=== PATIENT | female | born 1940 | race Hispanic/Latino ===

== ENCOUNTER 2017-03-01 14:29 | Inpatient (IN) | payer MEDICARE, MEDICAID ==
[2017-03-01 14:41] VITALS: BMI 59.5
--- NOTE | 2017-03-01 15:01 | ED PDOC ---
Arrival/HPI - General Chief Complaint: Altered Mental Status Time Seen by Provider: 03/01/17 14:42 Historian: Patient, EMS - History of Present Illness Narrative History of Present Illness (Text): 03/01/17 14:57 77yr old female presents today with lethargy. Per ems patient went to dialysis today and was sent to the emergency room for AMS. pt states she has been feeling tired for the past week. denies trauma or injury. denies headaches or dizziness. no cp or sob. no abdominal pain. denies back pain. denies fever/ chills. no other complaints. Time/Duration: 1 week Symptom Onset: Gradual Past Medical History - Provider Review Nursing Documentation Reviewed: Yes - Travel History Have you recently traveled outside [place] w/in the past 3 mons?: No - Infectious Disease Hx of Infectious Diseases: None - Tetanus Immunization Tetanus Immunization: Unknown - Cardiac Hx Congestive Heart Failure: Yes Hx Hypertension: Yes Hx Peripheral Edema: Yes - Pulmonary Hx Respiratory Disorders: No - Neurological Hx Transient Ischemic Attacks (TIA): Yes - HEENT Hx HEENT Disorder: No - Renal Hx Renal Disorder: Yes Date of Last Dialysis Treatment: 03/07/16 Hx Renal Failure: Yes (8 yrs) - Endocrine/Metabolic Hx Diabetes Mellitus Type 2: Yes (40 yrs) - Hematological/Oncological Hx Blood Disorders: Yes Hx Anemia: Yes Hx Blood Transfusions: Yes Hx Blood Transfusion Reaction: No - Integumentary Hx Dermatological Disorder: No Hx Cellulitis: Yes - Musculoskeletal/Rheumatological Hx Arthritis: Yes Hx Falls: No Hx Fractures: Yes - Gastrointestinal Hx Gastrointestinal Disorders: Yes Hx Gastroesophageal Reflux: Yes Other/Comment: pt had abdominal wall hernia. - Genitourinary/Gynecological Hx Incontinence: Yes Hx Reproductive Disorders: No - Psychiatric Hx Anxiety: Yes Hx Depression: Yes Hx Substance Use: No - Past Surgical History Past Surgical History: Unable to Obtain - Surgical History Hx Cataract Extraction: Yes (01/13) Hx Musculoskeletal Surgery: Yes Hx Orthopedic Surgery: Yes (KNEE) Other/Comment: hx surgery post fall brain hematoma 2012,bedridden since then secondary weakness - Anesthesia Hx Anesthesia: Yes Hx Anesthesia Reactions: No Hx Malignant Hyperthermia: No - Suicidal Assessment Feels Threatened In Home Enviroment: No Family/Social History - Physician Review Nursing Documentation Reviewed: Yes Family/Social History: Unknown Family HX Smoking Status: Never Smoked Hx Alcohol Use: No Hx Substance Use: No Hx Substance Use Treatment: No Allergies/Home Meds Allergies/Adverse Reactions: Allergies morphine Allergy (Severe, Verified 03/01/17 22:50) ANAPHYLAXIS peanut Allergy (Severe, Verified 03/01/17 22:50) ANAPHYLAXIS shellfish derived Allergy (Severe, Verified 03/01/17 22:50) ANAPHYLAXIS MSG Allergy (Intermediate, Uncoded 03/01/17 22:50) SWELLING Home Medications: Home Meds Medication Instructions Recorded Confirmed Acetaminophen 325 mg PO Q6 PRN 01/28/16 03/01/17 Amino Acids/Protein Hydrolys 30 ml PO TID 01/28/16 03/01/17 [Pro-Stat Profile Liquid] Fluticasone Propionate [Flonase 2 puff NS Q12 03/01/17 03/01/17 Allergy Relief] Review of Systems - Review of Systems Constitutional: absent: Fevers Respiratory: absent: SOB, Cough Cardiovascular: absent: Chest Pain, Palpitations Gastrointestinal: absent: Abdominal Pain, Vomiting Musculoskeletal: absent: Arthralgias, Back Pain Skin: absent: Rash Neurological: absent: Headache, Dizziness Physical Exam Vital Signs Reviewed: Yes Vital Signs Temp Pulse Pulse Resp BP Pulse Ox 03/01/17 23:14 18 03/01/17 22:51 98.5 F 74 74 18 109/72 03/01/17 15:11 98.5 F 74 18 109/72 97 03/01/17 14:30 98.3 F 76 20 109/72 98 Temperature: Afebrile Blood Pressure: Normal Pulse: Regular Respiratory Rate: Normal Appearance: Positive for: Well-Appearing, Non-Toxic, Comfortable Pain Distress: None Mental Status: Positive for: Confused, Lethargic Finger Stick Blood Glucose: 165 - Systems Exam Head: Present: Atraumatic Pupils: Present: PERRL Neck: Present: Normal Range of Motion Respiratory/Chest: Present: Clear to Auscultation, Good Air Exchange. No: Respiratory Distress, Accessory Muscle Use, Wheezes Cardiovascular: Present: Regular Rate and Rhythm Abdomen: No: Tenderness Lower Extremity: Present: Edema. No: CALF TENDERNESS Skin: Present: Warm, Dry Psychiatric: Present: Alert Medical Decision Making ED Course and Treatment: 03/01/17 15:14 77yr old diabetic female on dialysis presenting with lethargy. due for dialysis today. vitals stable. pt seen and evaluated by dr. raswant cbc: hbg; 9.2 cmp: k;6.2 cr; 8.2 lactate; 1.1 ammonia; <9 trop: 0.01 ekg sinus rhythm with first-degree AV block at [address] elevations cxr: cardiomegaly head ct: FINDINGS: HEMORRHAGE: No intracranial hemorrhage. BRAIN: No mass effect or edema. 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 There is no acute infarct VENTRICLES: Unremarkable. No hydrocephalus. CALVARIUM: Left posterior frontal craniotomy defect PARANASAL SINUSES: Unremarkable as visualized. No significant inflammatory changes. MASTOID AIR CELLS: Unremarkable as visualized. No inflammatory changes. OTHER FINDINGS: None. IMPRESSION: No acute findings 03/01/17 16:[address] mitchell who saw patient at beside. Pt to go directly to dialysis; pt missed dialysis on monday and monday. case discussed with dr. lemon; accepts observational status admission for AMS, hyperkalemia. impression: AMS, hyperkalemia, renal failure admit observational status to tele. 03/01/17 16:32 Pt now is dialysis; new information obtained from detention; pt with strangulated umbilical hernia that was repaired on February 21. Abdomen was soft and nontender. I discussed this information with Dr. Lemon and suggested [place] the order CAT scan with IV contrast. Although patient is without pain, without white count and without elevated latate. 03/02/17 00:30 pt was admitted to tele; PT on tele floor; ct results in vrad; discussed with dr. abreu and the rn surgical dr. fine. ct abd/pelvis; FINDINGS: Artifacts: Streak artifact degrades image quality.Motion artifact degrades image quality. There is artifact from arch body habitus. Lower thorax: There is a small hiatal hernia. There is scarring at the left base. There is a small right effusion. Right lung bases not imaged. ABDOMEN: Liver: Liver is incompletely imaged. No focal lesions are seen in the visualized portion of the liver. Gallbladder and bile ducts: Gallbladder is distended. There may be small stones. Common duct is unremarkable. Pancreas: Pancreas is severely atrophic and fatty-replaced area Spleen: unremarkable Adrenals: unremarkable Kidneys and ureters: Kidneys are atrophic. 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 There is a left renal cyst. There is no pelvocaliectasis or ureterectasis. Stomach and bowel: Stomach is almost empty. Rotation is normal. There is no obstruction. Ileocecal region is incompletely imaged due to body habitus. Cecum and ascending colon are incompletely imaged due to body habitus. There is moderate stool in the colon. There is a fecal bolus in the rectum. Appendix: See stomach and bowel PELVIS: Bladder: Bladder is partially distended. Reproductive: Uterus is absent. There are no adnexal masses. ABDOMEN and PELVIS: Intraperitoneal space: There is no free intraperitoneal air. There is no free fluid. Bones/joints: Bony structures are osteopenic.There are degenerative changes in the osseus structures. There is compression fracture at L2 with vertebroplasty. Soft tissues: There is rectus diastases. Rectus muscles are atrophic. There is abdominal wall abscess which measures approximately 3.6 x 6.5 x 5.4 cm. There are intra-and extra abdominal components to the abscess. There is inflammation in the fat of the abdominal wall. There is air abdominal wall component. Vasculature: There are multiple phleboliths. There are vascular calcifications. Lymph nodes: There is no pathologic adenopathy. IMPRESSION: Limited by large body habitus; 3.6 x 6.5 x 5.4 cm lower abdominal/abdominal wall abscess; possible gallstones; renal atrophy - Lab Interpretations Lab Results: 03/01/17 15:05 03/01/17 19:45 Lab Results 03/01/17 19:45: Sodium 137, Chloride 102, Potassium 3.4 L, Carbon Dioxide 25, Anion Gap 13, BUN 30 H, Creatinine 3.4 H, Est GFR ( Amer) 16, Est GFR ( Non-Af Amer) 13, Random Glucose 98, Calcium 8.5 03/01/17 19:45: TSH 3rd Generation 2.60 03/01/17 17:55: Phosphorus 3.4, Magnesium 2.1 03/01/17 15:05: PT 10.7, INR 0.99, APTT 31.9 H 03/01/17 15:05: Ammonia < 9 L 03/01/17 15:05: WBC 9.7, RBC 2.98 L, Hgb 9.2 L, Hct 27.7 L, MCV 93.0, MCH 30.9, MCHC 33.2, RDW 13.5, Plt Count 169, MPV 9.6, Neutrophils % (Manual) 88 H, Band Neutrophils % 1, Lymphocytes % (Manual) 6 L, Monocytes % (Manual) 3, Eosinophils % (Manual) 2, Platelet Evaluation Normal, Rouleaux 2+ 03/01/17 15:05: Sodium 129 L, Chloride 96 L, Potassium 6.2 H* D, Carbon Dioxide 21, Anion Gap 18, BUN 84 H, Creatinine 8.2 H*, Est GFR ( Amer) 6, Est GFR (Non-Af Amer) 5, Random Glucose 153 H, Calcium 8.3 L, Total Bilirubin 0.4, AST 16, ALT 12, Alkaline Phosphatase 113, Lactate Dehydrogenase 494, Total Creatine Kinase 27 L, Troponin I < 0.01 D, Total Protein 5.7 L, Albumin 2.9 L, Globulin 2.8, Albumin/Globulin Ratio 1.0 L 03/01/17 15:05: pO2 170 H, VBG pH 7.26 L, VBG pCO2 55.0, VBG HCO3 24.7, VBG Total CO2 26.4, VBG O2 Sat (Calc) 98.3 H, VBG Base Excess -3.2 L, VBG Potassium 6.3 H*, Sodium 129.0 L, Chloride 98.0, Glucose 163 H, Lactate 1.1, FiO2 21.0, Venous Blood Potassium 6.3 H* 03/01/17 14:54: POC Glucose (mg/dL) 165 H - RAD Interpretation Radiology Orders: 03/01/17 14:55 CHEST PORTABLE [RAD] Stat 03/01/17 14:56 HEAD W/O CONTRAST [CT] Stat 03/01/17 17:58 ABD & PELVIS W/O PO OR IV CONT [CT] Routine DUPLEX LOWER EXTRM VEIN BILAT [US] Routine - Medication Orders Current Medication Orders: Acetaminophen (Tylenol 325mg Tab) 650 mg PO Q6H PRN PRN Reason: Pain, Mild (1-3) Albuterol Sulfate (Albuterol 0.083% Inhal Jennifer (2.5 Mg/3 Ml) Ud) 2.5 mg INH Q6H PRN PRN Reason: Wheezing Bisacodyl (Dulcolax) 10 mg RC Q8 PRN PRN Reason: Constipation Docusate Sodium (Colace) 200 mg PO DAILY PRN PRN Reason: Constipation Enoxaparin Sodium (Lovenox) 30 mg SC DAILY [facility]LL PRN Reason: Protocol Last Admin: 03/01/17 23:56 Dose: 30 mg Ergocalciferol (Drisdol 50,000 Intl Units Cap) 1 cap PO QWK [facility] Escitalopram Oxalate (Lexapro) 10 mg PO DAILY [facility] Ferrous Sulfate (Feosol) 324 mg PO Q12 [facility] Last Admin: 03/01/17 23:53 Dose: 324 mg Fluticasone Propionate (Flonase) 1 actuation ROSI DAILY [facility] Ceftriaxone Sodium (Rocephin 1 Gram Ivpb) 1 gm in 100 mls @ 100 mls/hr IVPB DAILY [facility] PRN Reason: Protocol Last Admin: 03/01/17 22:13 Dose: 100 mls/hr Insulin Human Lispro (Humalog High) 0 units SC ACHS [facility] PRN Reason: Protocol Last Admin: 03/01/17 23:55 Dose: Not Given Non-Admin Reason: Blood Sugar Parameter Isosorbide Dinitrate (Isordil) 20 mg PO Q8 [facility] Last Admin: 03/01/17 23:56 Dose: 20 mg Lactulose (Enulose) 20 gm PO DAILY [facility] Levothyroxine Sodium (Synthroid) 50 mcg PO 0630 [facility] Mometasone Furoate (Asmanex Twisthaler 220 Mcg) 1 puff IH HS [facility] Montelukast Sodium (Singulair) 10 mg PO HS [facility] Last Admin: 03/01/17 23:57 Dose: 10 mg Non-Formulary Medication (Saccharomyces Boulardi [Florastor]) 250 mg PO DAILY [facility] Ondansetron HCl (Zofran Inj) 4 mg IVP Q6 PRN PRN Reason: Nausea/Vomiting Pantoprazole Sodium (Protonix Inj) 40 mg IVP DAILY [facility] Sevelamer HCl (Renagel) 800 mg PO WM [facility] Sucralfate (Carafate Tab) 1 gm PO BID [facility] Vitamin B Complex/Vit C/Folic Acid (Nephro-Fernando) 1 tab PO DAILY [facility] Discontinued Medications Iohexol (Omnipaque 350 100 Ml) Confirm Administered Dose 350 mg .ROUTE .STK-MED ONE Stop: 03/01/17 21:20 Pneumococcal Polyvalent Vaccine (Pneumovax 23 Vaccine) 0.5 ml IM .ONCE ONE Stop: 03/01/17 23:13 Disposition/Present on Arrival - Present on Arrival Any Indicators Present on Arrival: No History of DVT/PE: No History of Uncontrolled Diabetes: No Urinary Catheter: No History of Decub. Ulcer: No History Surgical Site Infection Following: None - Disposition Have Diagnosis and Disposition been Completed?: Yes Diagnosis: Altered mental status, Hyperkalemia, Abdominal wall abscess Disposition: HOSPITALIZED Disposition Time: 16:00 Patient Plan: Observation, Telemetry Patient Problems: Current Active Problems Problem Status Onset Altered mental status Acute Hyperkalemia Acute Condition: FAIR
[2017-03-01 15:27] LABS: VENOUS BLOOD GAS BASE EXCESS -3.2 mmol/L (0.0-2.0); VENOUS BLOOD PH 7.26 (7.32-7.43)
[2017-03-01 15:32] LABS: HEMATOCRIT 27.7 % (36.0-48.0); MEAN CORPUSCULAR HEMOGLOBIN 30.9 pg (25.0-35.0); MEAN CORPUSCULAR HGB CONC 33.2 g/dl (31.0-37.0); MEAN PLATELET VOLUME 9.6 fl (7.0-11.0); PLATELET COUNT 169 10^3/uL (120.0-450.0); RED CELL DISTRIBUTION WIDTH 13.5 % (11.5-14.5); WHITE BLOOD COUNT 9.7 10^3/ul (4.5-11.0)
--- NOTE | 2017-03-01 15:38 | RAD ---
HISTORY: lethargy COMPARISON: 02/10/2015 FINDINGS: LUNGS: No consolidation. Pulmonary vascular congestion possible. The somewhat shallow lung volumes and large body habitus accentuate this appearance PLEURA: No significant pleural effusion identified, no pneumothorax apparent. CARDIOVASCULAR: Mild cardiomegaly unchanged OSSEOUS STRUCTURES: No significant abnormalities. VISUALIZED UPPER ABDOMEN: Normal. OTHER FINDINGS: Large body habitus IMPRESSION: Cardiomegaly as before. Possible mild pulmonary vascular congestion - limitation as above. No effusions seen
[2017-03-01 15:39] LABS: ALKALINE PHOSPHATASE 113 U/L (38-133); ALT/SGPT 12 U/L (7-56); AST/SGOT 16 U/L (15-39); BILIRUBIN,TOTAL 0.4 mg/dL (0.2-1.3); BLOOD UREA NITROGEN 84 mg/dL (7-21); CALCIUM 8.3 mg/dL (8.4-10.5); CARBON DIOXIDE 21 mmol/L (21-33); CHLORIDE 96 mmol/L (98-107); GFR AFRICAN-AMERICAN 6; GLUCOSE,RANDOM 153 mg/dL (70-110); SODIUM 129 mmol/L (132-148); TOTAL PROTEIN 5.7 g/dL (5.8-8.3)
[2017-03-01 15:48] LABS: INR 0.99 (0.93-1.08); PARTIAL THROMBOPLASTIN TIME 31.9 Seconds (23.7-30.8)
[2017-03-01 15:49] LABS: ADD MANUAL DIFF? YES
--- NOTE | 2017-03-01 15:51 | CT ---
PROCEDURE: CT HEAD WITHOUT CONTRAST. HISTORY: lethargy COMPARISON: None available. TECHNIQUE: Axial computed tomography images were obtained through the head/brain without intravenous contrast. Radiation dose: Total exam DLP = 725 mGy-cm. This CT exam was performed using one or more of the following dose reduction techniques: Automated exposure control, adjustment of the mA and/or kV according to patient size, and/or use of iterative reconstruction technique. FINDINGS: HEMORRHAGE: No intracranial hemorrhage. BRAIN: No mass effect or edema. 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 There is no acute infarct VENTRICLES: Unremarkable. No hydrocephalus. CALVARIUM: Left posterior frontal craniotomy defect PARANASAL SINUSES: Unremarkable as visualized. No significant inflammatory changes. MASTOID AIR CELLS: Unremarkable as visualized. No inflammatory changes. OTHER FINDINGS: None. IMPRESSION: No acute findings
[2017-03-01 15:55] LABS: TROPONIN I < 0.01 ng/mL
[2017-03-01 16:10] LABS: POTASSIUM 6.2 mmol/L (3.6-5.0)
--- NOTE | 2017-03-01 17:09 | CP.PCM.HP ---
<Lynne Neely - Last Filed: 03/01/17 18:14> History of Present Illness - History of Present Illness History of Present Illness: 77 F with PMHx of ESRD on HD (MWF), COPD, DM, HTN, Hypothyroidism, presented to [facility] ED with complaints of lethargy, fatigue, and AMS. Pt apparently missed her last HD appointment on monday so the last time she was dialysized was 1 week ago , last monday. Pt was seen and examined at bedside while receiving HD therapy. Pt is somnolent but arousable, AAOx2. ROS unavailable due to pt condition at this time. PMHx: ESRD on HD (MWF), COPD, DM, HTN, Hypothyroidism, subdural hematoma PSHx: Hysterectomy, hernia repair 1 week ago, subdural hematoma evacuation Famhx: Noncontributory SHx: Lives in [facility]pc Meds: MAR reviewed Allergies: Morphine, peanut, shellfish Implementation Consultant: Dr. Duenas Present on Admission - Present on Admission Any Indicators Present on Admission: No Review of Systems - Review of Systems Systems not reviewed;Unavailable: Acuity of Condition, Altered Mental Status Past Patient History - Infectious Disease Hx of Infectious Diseases: None - Tetanus Immunizations Tetanus Immunization: Unknown - Past Medical History & Family History Past Medical History?: Yes - Past Social History Smoking Status: Never Smoked - CARDIAC Hx Congestive Heart Failure: Yes Hx Hypertension: Yes Hx Peripheral Edema: Yes - PULMONARY Hx Respiratory Disorders: No - NEUROLOGICAL Hx Transient Ischemic Attacks (TIA): Yes - HEENT Hx HEENT Problems: No - RENAL Hx Chronic Kidney Disease: Yes Date of Last Dialysis Treatment: 03/07/16 Hx Renal Failure: Yes (8 yrs) - ENDOCRINE/METABOLIC Hx Diabetes Mellitus Type 2: Yes (40 yrs) - HEMATOLOGICAL/ONCOLOGICAL Hx Blood Disorders: Yes Hx Anemia: Yes Hx Blood Transfusions: Yes Hx Blood Transfusion Reaction: No - INTEGUMENTARY Hx Dermatological Problems: No Hx Cellulitis: Yes - MUSCULOSKELETAL/RHEUMATOLOGICAL Hx Arthritis: Yes Hx Falls: No Hx Fractures: Yes - GASTROINTESTINAL Hx Gastrointestinal Disorders: Yes Hx Gastroesophageal Reflux: Yes Other/Comment: pt had abdominal wall hernia. - GENITOURINARY/GYNECOLOGICAL Hx Incontinence: Yes Hx Reproductive Disorders: No - PSYCHIATRIC Hx Anxiety: Yes Hx Depression: Yes Hx Substance Use: No - SURGICAL HISTORY Hx Cataract Extraction: Yes (01/13) Hx Musculoskeletal Surgery: Yes Hx Orthopedic Surgery: Yes (KNEE) Other/Comment: hx surgery post fall brain hematoma 2013,bedridden since then secondary weakness - ANESTHESIA Hx Anesthesia: Yes Hx Anesthesia Reactions: No Hx Malignant Hyperthermia: No Meds Allergies/Adverse Reactions: Allergies Allergy/AdvReac Type Severity Reaction Status Date / Time morphine Allergy Severe ANAPHYLAXIS Verified 03/08/16 00:57 peanut Allergy Severe ANAPHYLAXIS Verified 03/08/16 00:57 shellfish derived Allergy Severe ANAPHYLAXIS Verified 03/08/16 00:57 MSG Allergy Intermediate SWELLING Uncoded 03/08/16 00:57 Physical Exam - Constitutional Appears: No Acute Distress - Head Exam Head Exam: ATRAUMATIC, NORMAL INSPECTION, NORMOCEPHALIC - Eye Exam Eye Exam: EOMI, Normal appearance, PERRL Pupil Exam: NORMAL ACCOMODATION, PERRL - ENT Exam ENT Exam: Mucous Membranes Moist, Normal Exam - Neck Exam Neck exam: Positive for: Normal Inspection - Respiratory Exam Respiratory Exam: Rales, NORMAL BREATHING PATTERN - Cardiovascular Exam Cardiovascular Exam: REGULAR RHYTHM - GI/Abdominal Exam GI & Abdominal Exam: Distended, Normal Bowel Sounds, Soft, Tenderness Additional comments: dressing in periumbilical region, dressing intact, CDI - Extremities Exam Extremities exam: Positive for: pedal edema - Neurological Exam Neurological exam: Alert, Altered, CN II-XII Intact - Psychiatric Exam Psychiatric exam: Normal Affect, Normal Mood - Skin Skin Exam: Dry, Intact, Normal Color, Warm Results - Vital Signs Recent Vital Signs: Last Vital Signs Temp 98.5 F 03/01/17 15:11 Pulse 74 03/01/17 15:11 Resp 18 03/01/17 15:11 BP 109/72 03/01/17 15:11 Pulse Ox 97 03/01/17 15:11 - Labs Result Diagrams: 03/01/17 15:05 03/01/17 15:05 Assessment & Plan - Assessment and Plan (Free Text) Assessment: 77 F with PMHx of ESRD on HD (MWF), COPD, DM, HTN, Hypothyroidism, presented to [facility] ED with complaints of lethargy, fatigue, and AMS and electrolyte abnormality 2/2 noncompliant dialysis. AMS - likely 2/2 noncompliance with dialysis - emergent HD currently - fu tsh - Will reassess after dialysis - Avoid narcotics since currently drowsy and altered Electrolyte abnormality - hyponatremic and hyperkalemic - reassess with bmp after dialysis - supplement and replete as needed Abdominal pain - recent hernia repair approx 1 week ago, incision site dressed CDI - CT ABD IV contrast, will redialyse if necessary B/L LE erythema and swelling - FU Dopplers - Rocephin for possible cellulitis COPD - continue home nebs Hypothyroidism - Continue synthroid DM - Hold levemir for now will cover with sliding scale and readjust as needed - fingersticks - fu a1c HTN - Hold home meds for now - continue to monitor GI DVT ppx reviewed Seen reviewed and discussed with attending <Melvin Lemon - Last Filed: 03/01/17 20:10> Results - Vital Signs Recent Vital Signs: Last Vital Signs Temp 98.5 F 03/01/17 15:11 Pulse 74 03/01/17 15:11 Resp 18 03/01/17 15:11 BP 109/72 03/01/17 15:11 Pulse Ox 97 03/01/17 15:11 - Labs Result Diagrams: 03/01/17 15:05 03/01/17 15:05 Labs: Laboratory Results - last 24 hr 03/01/17 17:55 Phosphorus 3.4 Magnesium 2.1 Attending/Attestation - Attestation I have personally seen and examined this patient.: Yes I have fully participated in the care of the patient.: Yes I have reviewed all pertinent clinical information: Yes Notes (Text): 03/01/17 20:03 77 year old female with past medical history of ESRD on HD, diabetes. hypothyroidism, and hypertension who presents with lethargy after missed sessions of dialysis. Was also found to have hyperkalemia with potassium of 6.2. She is currently getting emergent dialysis. CT head was negative and ammonia level was normal. Will follow up on repeat labs. Nephrology is following. She also reports some abdominal discomfort. She states she had a recent hernia repair surgery about one week ago. CT abd/pelvis is ordered. Antibiotics ordered for bilateral LE cellulitis. LE dopplers also ordered. Continue with synthroid for hypothyroidism. TSH level is ordered. Melvin Lemon MD Hospitalist.
[2017-03-01 17:52] LABS: BAND 1 % (0-2); EOSINOPHIL 2 % (0.0-3.0); NEUTROPHIL 88 % (50.0-70.0); PLATELET ESTIMATE NORMAL (NORMAL)
[2017-03-01] MEDS ORDERED: Albuterol 0.083% Inhal Sol (2.5 mg/3 mL) UD INH PRN (18:01)
[2017-03-01 18:25] LABS: MAGNESIUM 2.1 mg/dL (1.7-2.2); PHOSPHOROUS 3.4 mg/dL (2.5-4.5)
--- NOTE | 2017-03-01 19:46 | CARD ---
APPROVED REPORT EKG Measurement Heart [id number] MD [id number] <Conclusion> Sinus rhythm with 1st degree AV block Incomplete left bundle branch block Borderline ECG
[2017-03-01] MEDS ORDERED: Iohexol 350 MG/100 ML VIAL ONE (21:19)
[2017-03-01] MEDS ORDERED: Mometasone 220 mcg/puff-14 puff Inh IH SCH (22:00)
[2017-03-01] MEDS: cefTRIAXone 1 gm 1 GM/100 ML BAG IVPB SCH (22:13)
--- NOTE | 2017-03-01 22:36 | CT ---
EXAM: CT Abdomen and Pelvis Without Intravenous Contrast CLINICAL HISTORY: 77 years old, female; Pain; Abdominal pain; Generalized; Additional info: Abd pain TECHNIQUE: Axial computed tomography images of the abdomen and pelvis without intravenous contrast. This CT exam was performed using one or more of the following dose reduction techniques: automated exposure control, adjustment of the mA and/or kV according to patient size, and/or use of iterative reconstruction technique. Coronal and sagittal reformatted images were created and reviewed. EXAM DATE/TIME: 03/01/2017 5:58 PM COMPARISON: Prior images are not available for review. Correlation is made with a report dated 05/27/13 FINDINGS: Artifacts: Streak artifact degrades image quality.Motion artifact degrades image quality. There is artifact from arch body habitus. Lower thorax: There is a small hiatal hernia. There is scarring at the left base. There is a small right effusion. Right lung bases not imaged. ABDOMEN: Liver: Liver is incompletely imaged. No focal lesions are seen in the visualized portion of the liver. Gallbladder and bile ducts: Gallbladder is distended. There may be small stones. Common duct is unremarkable. Pancreas: Pancreas is severely atrophic and fatty-replaced area Spleen: unremarkable Adrenals: unremarkable Kidneys and ureters: Kidneys are atrophic. 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 There is a left renal cyst. There is no pelvocaliectasis or ureterectasis. Stomach and bowel: Stomach is almost empty. Rotation is normal. There is no obstruction. Ileocecal region is incompletely imaged due to body habitus. Cecum and ascending colon are incompletely imaged due to body habitus. There is moderate stool in the colon. There is a fecal bolus in the rectum. Appendix: See stomach and bowel PELVIS: Bladder: Bladder is partially distended. Reproductive: Uterus is absent. There are no adnexal masses. ABDOMEN and PELVIS: Intraperitoneal space: There is no free intraperitoneal air. There is no free fluid. Bones/joints: Bony structures are osteopenic.There are degenerative changes in the osseus structures. There is compression fracture at L2 with vertebroplasty. Soft tissues: There is rectus diastases. Rectus muscles are atrophic. There is abdominal wall abscess which measures approximately 3.6 x 6.5 x 5.4 cm. There are intra-and extra abdominal components to the abscess. There is inflammation in the fat of the abdominal wall. There is air abdominal wall component. Vasculature: There are multiple phleboliths. There are vascular calcifications. Lymph nodes: There is no pathologic adenopathy. IMPRESSION: Limited by large body habitus; 3.6 x 6.5 x 5.4 cm lower abdominal/abdominal wall abscess; possible gallstones; renal atrophy Additional findings as described above.
[2017-03-01 23:11] LABS: CALCIUM 8.5 mg/dL (8.4-10.5); POTASSIUM 3.4 mmol/L (3.6-5.0)
[2017-03-01] MEDS ORDERED: Pneumococcal 23-Valent Vaccine IM ONE (23:12)
[2017-03-01] MEDS: Insulin Lispro (HUMAlog) HIGH Coverage SC SCH (23:55)
[2017-03-01] MEDS: Enoxaparin 30 mg Syringe SC SCH (23:56)
--- NOTE | 2017-03-02 00:33 | CP.PCM.CON ---
History of Present Illness - History of Present Illness History of Present Illness: General Surgery consult for Dr. Perez Consulted for: concern for abdominal wall abscess, 1 week s/p umbilical hernia repair Patient is a 77y/o morbidly obese female with PMH including DM2, ESRD on HD MWF , hypothyroidism, GERD, CHF and COPD with PSH of hysterectomy and repair of a presumed incarcerated umbilical hernia 1 week ago at [facility] [place]. Patient was brought in from half-way for AMS after missing a session of dialysis. Patient was emergently dialyzed for hyperuremia. Patient complained of abdominal discomfort in the ER and a CT scan of the abdomen and pelvis showed a fluid collection and air in the tissue of the abdominal wall at the level of the umbilicus. The fluid collection appears to have an extra and intraperitoneal component, but there is no free air in the abdomen. Patient currently complains of heart burn with regurgitation of food tonight without blood or bile. Denies any abdominal pain at this time, nausea, diarrhea, constipation, melena, hematochezia, decreased appetite, fevers, chills, drainage or bleeding from the surgical site. Patient states that her surgery was an emergent umbilical hernia repair and that a drain was left in after the operation. It has subsequently been removed. afebrile, VSS no leukocytosis PMH: HTN, DM2, ESRD ON HD, hypothyroidism, GERD, CHF, COPD, subdural hematoma, TIA PSH: hysterectomy, subdural hematoma evacuation, umbilical hernia repair ALL: morphine, peanut, shellfish, MSG Social: lives at half-way Review of Systems - Review of Systems All systems: reviewed and no additional remarkable complaints except (as per HPI ) - Constitutional Constitutional: Fatigue, Malaise. absent: Chills, Fever - Breasts Breasts: absent: Pain, Skin Changes - Cardiovascular Cardiovascular: Chest Pain (central burning sensation with eating), Edema. absent: Chest Pain at Rest, Dyspnea - Respiratory Respiratory: absent: Cough, Dyspnea, Chest Congestion - Gastrointestinal Gastrointestinal: As Per HPI, Vomiting. absent: Abdominal Pain, Change in Stool Character, Constipation, Diarrhea, Hematemesis, Hematochezia, Melena, Nausea Additional comments: Denies any abdominal wall drainage or bleeding - Musculoskeletal Musculoskeletal: absent: Numbness, Tingling - Integumentary Integumentary: Wounds (healing surgical site at umbilicus) - Neurological Neurological: absent: Numbness, Tingling Additional comments: visual hallucinations - Psychiatric Psychiatric: Visual Hallucinations. absent: Tactile Hallucinations Past Patient History - Infectious Disease Hx of Infectious Diseases: None - Tetanus Immunizations Tetanus Immunization: Unknown - Past Medical History & Family History Past Medical History?: Yes - Past Social History Smoking Status: Never Smoked - CARDIAC Hx Congestive Heart Failure: Yes Hx Hypertension: Yes Hx Peripheral Edema: Yes - PULMONARY Hx Respiratory Disorders: No - NEUROLOGICAL Hx Transient Ischemic Attacks (TIA): Yes - HEENT Hx HEENT Problems: No - RENAL Hx Chronic Kidney Disease: Yes Date of Last Dialysis Treatment: 03/07/16 Hx Renal Failure: Yes (8 yrs) - ENDOCRINE/METABOLIC Hx Diabetes Mellitus Type 2: Yes (40 yrs) - HEMATOLOGICAL/ONCOLOGICAL Hx Blood Disorders: Yes Hx Anemia: Yes Hx Blood Transfusions: Yes Hx Blood Transfusion Reaction: No - INTEGUMENTARY Hx Dermatological Problems: No Hx Cellulitis: Yes - MUSCULOSKELETAL/RHEUMATOLOGICAL Hx Arthritis: Yes Hx Falls: No Hx Fractures: Yes - GASTROINTESTINAL Hx Gastrointestinal Disorders: Yes Hx Gastroesophageal Reflux: Yes Other/Comment: pt had abdominal wall hernia. - GENITOURINARY/GYNECOLOGICAL Hx Incontinence: Yes Hx Reproductive Disorders: No - PSYCHIATRIC Hx Anxiety: Yes Hx Depression: Yes Hx Substance Use: No - SURGICAL HISTORY Hx Cataract Extraction: Yes (01/13) Hx Musculoskeletal Surgery: Yes Hx Orthopedic Surgery: Yes (KNEE) Other/Comment: hx surgery post fall brain hematoma 2012,bedridden since then secondary weakness - ANESTHESIA Hx Anesthesia: Yes Hx Anesthesia Reactions: No Hx Malignant Hyperthermia: No Meds Allergies/Adverse Reactions: Allergies Allergy/AdvReac Type Severity Reaction Status Date / Time morphine Allergy Severe ANAPHYLAXIS Verified 03/01/17 22:50 peanut Allergy Severe ANAPHYLAXIS Verified 03/01/17 22:50 shellfish derived Allergy Severe ANAPHYLAXIS Verified 03/01/17 22:50 MSG Allergy Intermediate SWELLING Uncoded 03/01/17 22:50 - Medications Medications: Current Medications Acetaminophen (Tylenol 325mg Tab) 650 mg PO Q6H PRN PRN Reason: Pain, Mild (1-3) Albuterol Sulfate (Albuterol 0.083% Inhal Jennifer (2.5 Mg/3 Ml) Ud) 2.5 mg INH Q6H PRN PRN Reason: Wheezing Bisacodyl (Dulcolax) 10 mg RC Q8 PRN PRN Reason: Constipation Docusate Sodium (Colace) 200 mg PO DAILY PRN PRN Reason: Constipation Enoxaparin Sodium (Lovenox) 30 mg SC DAILY [facility] PRN Reason: Protocol Last Admin: 03/01/17 23:56 Dose: 30 mg Ergocalciferol (Drisdol 50,000 Intl Units Cap) 1 cap PO QWK [facility] Escitalopram Oxalate (Lexapro) 10 mg PO DAILY [facility] Ferrous Sulfate (Feosol) 324 mg PO Q12 [facility] Last Admin: 03/01/17 23:53 Dose: 324 mg Fluticasone Propionate (Flonase) 1 actuation ROSI DAILY [facility] Ceftriaxone Sodium (Rocephin 1 Gram Ivpb) 1 gm in 100 mls @ 100 mls/hr IVPB DAILY [facility] PRN Reason: Protocol Last Admin: 03/01/17 22:13 Dose: 100 mls/hr Insulin Human Lispro (Humalog High) 0 units SC ACHS [facility] PRN Reason: Protocol Last Admin: 03/01/17 23:55 Dose: Not Given Isosorbide Dinitrate (Isordil) 20 mg PO Q8 [facility] Last Admin: 03/01/17 23:56 Dose: 20 mg Lactulose (Enulose) 20 gm PO DAILY [facility] Levothyroxine Sodium (Synthroid) 50 mcg PO 0630 [facility] Mometasone Furoate (Asmanex Twisthaler 220 Mcg) 1 puff IH HS [facility] Montelukast Sodium (Singulair) 10 mg PO HS [facility] Last Admin: 03/01/17 23:57 Dose: 10 mg Non-Formulary Medication (Saccharomyces Boulardi [Florastor]) 250 mg PO DAILY [facility] Ondansetron HCl (Zofran Inj) 4 mg IVP Q6 PRN PRN Reason: Nausea/Vomiting Pantoprazole Sodium (Protonix Inj) 40 mg IVP DAILY [facility] Sevelamer HCl (Renagel) 800 mg PO WM [facility] Sucralfate (Carafate Tab) 1 gm PO BID [facility] Vitamin B Complex/Vit C/Folic Acid (Nephro-Fernando) 1 tab PO DAILY [facility] Physical Exam - Constitutional Appears: Non-toxic, No Acute Distress, Chronically Ill - Eye Exam Eye Exam: EOMI, Normal appearance. absent: Conjunctival injection, Scleral icterus - ENT Exam ENT Exam: Mucous Membranes Moist, Normal Oropharynx - Respiratory Exam Respiratory Exam: NORMAL BREATHING PATTERN. absent: Accessory Muscle Use, Respiratory Distress - Cardiovascular Exam Cardiovascular Exam: RRR - GI/Abdominal Exam GI & Abdominal Exam: Soft. absent: Distended, Rebound, Tenderness Additional comments: morbidly obese abdomen with thick pannus and overlying skin edema, healing surgical incision in the umbilicus. Area of firmness under the surgical site without palpable fluctuance or tenderness. No expressible drainage or bleeding or surrounding erythema. - Extremities Exam Extremities exam: Positive for: pedal edema (2+ pitting edema in the dependent portion of the calves), pedal pulses present. Negative for: calf tenderness, tenderness - Neurological Exam Neurological exam: Alert Additional comments: Oriented to person, time, and purpose, but not place - Psychiatric Exam Psychiatric exam: Normal Affect, Normal Mood - Skin Skin Exam: Normal Color, Warm Additional comments: Areas of wet skin under the breasts and abdominal pannus, mild excoriation of the skin on recent umbilical surgery site Results - Vital Signs Recent Vital Signs: Last Vital Signs Temp 98.5 F 03/01/17 22:51 Pulse 74 03/01/17 22:51 Resp 18 03/01/17 23:14 BP 109/72 03/01/17 22:51 Pulse Ox 97 03/01/17 15:11 - Labs Result Diagrams: 03/01/17 15:05 03/01/17 19:45 - Imaging and Cardiology CT scan - abdomen Status: Image reviewed by me, Report reviewed by me CT scan - pelvis Status: Image reviewed by me, Report reviewed by me Assessment & Plan - Assessment and Plan (Free Text) Assessment: 77F with extensive past medical history including ESRD on HD, DM and CHF and PSH of hysterectomy who is 1 week S/P umbilical hernia repair at [facility] [place] with fluid collection/subcutaneous air at recent surgical site Patient is afebrile, normocardic Abdominal exam is benign, no current drainage or sign of abscess, but is limited by body habitus CT: rectus diastases, abdominal wall collection 3.6 x 6.5 x 5.4 cm with intra and extra abdominal components, inflammation of abdominal wall with subcutaneous air at the surgery site no leukocytosis, anemic Plan: -no indication for emergent surgical intervention -though limited by body habitus, exam is not suggestive of an abscess: no tenderness to palpation, fluctuance, or expressible drainage. Possible seroma/ normal post-op changes -trend CBC, monitor for fever -Serial exams -Skin care at surgical site -Continue management per the primary team Thank you for this consult. Will discuss with Dr. Perez who will evaluate the patient in the AM and give further recs Claudia Amado, PGY1
[2017-03-02 03:29] VITALS: RESP 20
--- NOTE | 2017-03-02 05:47 | CP.PCM.PN ---
Subjective - Date & Time of Evaluation Date of Evaluation: 03/02/17 Time of Evaluation: 05:47 - Subjective Subjective: # 24 angiocath was inserted in right upper arm. Dx:Poor venous access. Objective - Vital Signs/Intake and Output Vital Signs (last 24 hours): Temp Pulse Resp BP Pulse Ox 98.7 F 91 H 20 110/76 96 03/02/17 00:01 03/02/17 04:45 03/02/17 00:01 03/02/17 00:01 03/02/17 00:01 - Medications Medications: Current Medications Acetaminophen (Tylenol 325mg Tab) 650 mg PO Q6H PRN PRN Reason: Pain, Mild (1-3) Albuterol Sulfate (Albuterol 0.083% Inhal Jennifer (2.5 Mg/3 Ml) Ud) 2.5 mg INH Q6H PRN PRN Reason: Wheezing Bisacodyl (Dulcolax) 10 mg RC Q8 PRN PRN Reason: Constipation Docusate Sodium (Colace) 200 mg PO DAILY PRN PRN Reason: Constipation Enoxaparin Sodium (Lovenox) 30 mg SC DAILY [facility] PRN Reason: Protocol Last Admin: 03/01/17 23:56 Dose: 30 mg Ergocalciferol (Drisdol 50,000 Intl Units Cap) 1 cap PO QWK [facility] Escitalopram Oxalate (Lexapro) 10 mg PO DAILY [facility] Ferrous Sulfate (Feosol) 324 mg PO Q12 [facility] Last Admin: 03/01/17 23:53 Dose: 324 mg Fluticasone Propionate (Flonase) 1 actuation ROSI DAILY [facility] Ceftriaxone Sodium (Rocephin 1 Gram Ivpb) 1 gm in 100 mls @ 100 mls/hr IVPB DAILY [facility] PRN Reason: Protocol Last Admin: 03/01/17 22:13 Dose: 100 mls/hr Insulin Human Lispro (Humalog High) 0 units SC ACHS [facility] PRN Reason: Protocol Last Admin: 03/01/17 23:55 Dose: Not Given Isosorbide Dinitrate (Isordil) 20 mg PO Q8 [facility] Last Admin: 03/01/17 23:56 Dose: 20 mg Lactulose (Enulose) 20 gm PO DAILY [facility] Levothyroxine Sodium (Synthroid) 50 mcg PO 0630 [facility] Mometasone Furoate (Asmanex Twisthaler 220 Mcg) 1 puff IH HS [facility] Montelukast Sodium (Singulair) 10 mg PO HS [facility] Last Admin: 03/01/17 23:57 Dose: 10 mg Non-Formulary Medication (Saccharomyces Boulardi [Florastor]) 250 mg PO DAILY [facility] Ondansetron HCl (Zofran Inj) 4 mg IVP Q6 PRN PRN Reason: Nausea/Vomiting Pantoprazole Sodium (Protonix Inj) 40 mg IVP DAILY [facility] Sevelamer HCl (Renagel) 800 mg PO WM [facility] Sucralfate (Carafate Tab) 1 gm PO BID [facility] Vitamin B Complex/Vit C/Folic Acid (Nephro-Fernando) 1 tab PO DAILY [facility] - Labs Labs: PT 10.7 Seconds (9.9-11.8) 03/01/17 15:05 INR 0.99 (0.93-1.08) 03/01/17 15:05 APTT 31.9 Seconds (23.7-30.8) H 03/01/17 15:05
[2017-03-02] MEDS ORDERED: Levothyroxine 50 MCG TAB PO SCH (06:30)
[2017-03-02 06:43] VITALS: O2SAT 95
[2017-03-02 07:57] LABS: ADD MANUAL DIFF? NO
[2017-03-02 08:03] LABS: BASO # 0.02 K/mm3 (0.0-2.0); BASO % 0.3 % (0.0-3.0); EOS # 0.2 (0.0-0.7); EOS % 2.7 % (1.5-5.0); GRAN # 5.43 (1.4-6.5); GRAN % 78.1 % (50.0-68.0); HEMATOCRIT 27.4 % (36.0-48.0); LYMPH # 0.8 (1.2-3.4); LYMPH % 10.8 % (22.0-35.0); MEAN CELL VOLUME 94.2 fL (80.0-105.0); MEAN CORPUSCULAR HEMOGLOBIN 30.6 pg (25.0-35.0); MEAN CORPUSCULAR HGB CONC 32.5 g/dl (31.0-37.0); MEAN PLATELET VOLUME 8.6 fl (7.0-11.0); MONO # 0.6 (0.1-0.6); MONO % 8.1 % (1.0-6.0); PLATELET COUNT 136 10^3/uL (120.0-450.0); RED CELL DISTRIBUTION WIDTH 13.4 % (11.5-14.5)
[2017-03-02 08:14] LABS: BILIRUBIN,TOTAL 0.4 mg/dL (0.2-1.3); CALCIUM 8.4 mg/dL (8.4-10.5); POTASSIUM 4.3 mmol/L (3.6-5.0); TOTAL PROTEIN 6.3 g/dL (5.8-8.3)
[2017-03-02] MEDS: Insulin Lispro (HUMAlog) HIGH Coverage SC SCH ×3 (08:27→16:31)
[2017-03-02] MEDS ORDERED: Fluticasone Nasal 50 mcg/Spray NAS SCH (10:00)
[2017-03-02] MEDS ORDERED: Multivitamin Vitamin B Complex (Nephro-Vite) Tab PO SCH (10:00)
[2017-03-02] MEDS ORDERED: [UNRECOGNIZED DRUG - OTHER] PO SCH (10:00)
[2017-03-02] MEDS: cefTRIAXone 1 gm 1 GM/100 ML BAG IVPB SCH (10:26)
[2017-03-02] MEDS: Enoxaparin 30 mg Syringe SC SCH (10:26)
[2017-03-02] MEDS: Prostat 15 g packet PO SCH ×3 (12:09→18:11)
[2017-03-02 12:16] VITALS: BP 118/53; PULSE 78; TEMP 98.4
--- NOTE | 2017-03-02 13:02 | CP.PCM.PN ---
Subjective - Date & Time of Evaluation Date of Evaluation: 03/02/17 Time of Evaluation: 12:00 - Subjective Subjective: Awake alert comfortable c/o pain around umbilicus Objective - Vital Signs/Intake and Output Vital Signs (last 24 hours): Temp Pulse Resp BP Pulse Ox 98.4 F 78 20 118/53 L 95 03/02/17 12:00 03/02/17 12:00 03/02/17 12:00 03/02/17 12:00 03/02/17 06:00 Intake and Output: 03/02/17 03/02/17 06:59 18:59 Intake Total 0 Output Total 0 Balance 0 - Medications Medications: Current Medications Acetaminophen (Tylenol 325mg Tab) 650 mg PO Q6H PRN PRN Reason: Pain, Mild (1-3) Albuterol Sulfate (Albuterol 0.083% Inhal Jennifer (2.5 Mg/3 Ml) Ud) 2.5 mg INH Q6H PRN PRN Reason: Wheezing Bisacodyl (Dulcolax) 10 mg RC Q8 PRN PRN Reason: Constipation Docusate Sodium (Colace) 200 mg PO DAILY PRN PRN Reason: Constipation Enoxaparin Sodium (Lovenox) 30 mg SC DAILY [facility]S [facility] PRN Reason: Protocol Last Admin: 03/02/17 10:26 Dose: 30 mg Ergocalciferol (Drisdol 50,000 Intl Units Cap) 1 cap PO QWK [facility] B[facility]S [facility] Escitalopram Oxalate (Lexapro) 10 mg PO DAILY [facility] 234 BEDS AT [facility] Last Admin: 03/02/17 10:25 Dose: 10 mg Ferrous Sulfate (Feosol) 324 mg PO Q12 [facility] 234 B[facility]S AT [facility] Last Admin: 03/02/17 10:25 Dose: 324 mg Fluticasone Propionate (Flonase) 1 actuation ROSI DAILY [facility] 234 BEDS AT [facility] Ceftriaxone Sodium (Rocephin 1 Gram Ivpb) 1 gm in 100 mls @ 100 mls/hr IVPB DAILY [facility] 234 B[facility]S AT [facility] PRN Reason: Protocol Last Admin: 03/02/17 10:26 Dose: 100 mls/hr Insulin Human Lispro (Humalog High) 0 units SC ACHS [facility] 234 BEDS AT [facility] PRN Reason: Protocol Last Admin: 03/02/17 12:02 Dose: 4 units Isosorbide Dinitrate (Isordil) 20 mg PO Q8 [facility] 234 B[facility]S AT [facility] Last Admin: 03/02/17 06:23 Dose: Not Given Lactulose (Enulose) 20 gm PO DAILY [facility] 234 BEDS AT [facility] Last Admin: 03/02/17 10:26 Dose: 20 gm Levothyroxine Sodium (Synthroid) 50 mcg PO 0630 [facility] 234 BEDS AT [facility] Last Admin: 03/02/17 06:23 Dose: 50 mcg Mometasone Furoate (Asmanex Twisthaler 220 Mcg) 1 puff IH [facility] Last Admin: 03/02/17 11:12 Dose: Not Given Montelukast Sodium (Singulair) 10 mg PO [facility] Last Admin: 03/01/17 23:57 Dose: 10 mg Non-Formulary Medication (Saccharomyces Boulardi [Florastor]) 250 mg PO DAILY [facility] 234 BEDS AT [facility] Last Admin: 03/02/17 11:29 Dose: Not Given Ondansetron HCl (Zofran Inj) 4 mg IVP Q6 PRN PRN Reason: Nausea/Vomiting Pantoprazole Sodium (Protonix Inj) 40 mg IVP DAILY [facility] 234 [facility]S [facility] Last Admin: 03/02/17 10:26 Dose: 40 mg Sevelamer HCl (Renagel) 800 mg PO WM [facility] 234 BEDS AT [facility] Last Admin: 03/02/17 12:02 Dose: 800 mg Sucralfate (Carafate Tab) 1 gm PO BID [facility] 234 BEDS AT [facility] Last Admin: 03/02/17 10:25 Dose: 1 gm Vitamin B Complex/Vit C/Folic Acid (Nephro-Fernando) 1 tab PO DAILY [facility] 234 B[facility]S [facility] Last Admin: 03/02/17 10:26 Dose: 1 tab - Labs Labs: 03/02/17 07:50 03/02/17 07:50 PT 10.7 Seconds (9.9-11.8) 03/01/17 15:05 INR 0.99 (0.93-1.08) 03/01/17 15:05 APTT 31.9 Seconds (23.7-30.8) H 03/01/17 15:05 - Constitutional Appears: No Acute Distress - Head Exam Head Exam: NORMAL INSPECTION, NORMOCEPHALIC - Eye Exam Pupil Exam: PERRL Additional comments: + pallor - ENT Exam ENT Exam: Mucous Membranes Moist, Normal Exam - Neck Exam Neck Exam: Normal Inspection - Respiratory Exam Respiratory Exam: Clear to Ausculation Bilateral, NORMAL BREATHING PATTERN - Cardiovascular Exam Cardiovascular Exam: REGULAR RHYTHM, +S1, +S2 - GI/Abdominal Exam Additional comments: Obese, difusse periumbilical tenderness - Rectal Exam Rectal Exam: Deferred - Extremities Exam Extremities Exam: Pedal Edema - Psychiatric Exam Psychiatric exam: Normal Affect - Skin Skin Exam: Normal Color Assessment and Plan (1) ESRD (end stage renal disease) on dialysis Assessment & Plan: s/p HD , HD again today Status: Acute (2) Altered mental status Assessment & Plan: resolved, likely 2/2 uremia + tramadol use Status: Acute (3) Hyperkalemia Assessment & Plan: resolved Status: Acute (4) Type 2 diabetes mellitus Assessment & Plan: con't to monitor FS, Insulin coverage Status: Acute
--- NOTE | 2017-03-02 13:53 | CP.PCM.PN ---
<Lynne Neely - Last Filed: 03/02/17 14:43> Subjective - Date & Time of Evaluation Date of Evaluation: 03/02/17 Time of Evaluation: 07:30 - Subjective Subjective: Pt was seen and examined at bedside. Pt is AA0x3 and answering questions appropriately. Pt has no acute complaints at this time. Pt did not have any acute or adverse events overnight as per nursing staff. Pt tolerated HD well yesterday and will likely be going for another session today. Pt denied fever, chills, sob, chest pains, n/v/d/c or urinary symptoms. Pt has mild abdominal discomfort. Objective - Vital Signs/Intake and Output Vital Signs (last 24 hours): Temp Pulse Resp BP Pulse Ox 98.4 F 78 20 118/53 L 95 03/02/17 12:00 03/02/17 12:00 03/02/17 12:00 03/02/17 12:00 03/02/17 06:00 Intake and Output: 03/02/17 03/02/17 06:59 18:59 Intake Total 0 Output Total 0 Balance 0 - Medications Medications: Current Medications Acetaminophen (Tylenol 325mg Tab) 650 mg PO Q6H PRN PRN Reason: Pain, Mild (1-3) Albuterol Sulfate (Albuterol 0.083% Inhal Jennifer (2.5 Mg/3 Ml) Ud) 2.5 mg INH Q6H PRN PRN Reason: Wheezing Bisacodyl (Dulcolax) 10 mg RC Q8 PRN PRN Reason: Constipation Docusate Sodium (Colace) 200 mg PO DAILY PRN PRN Reason: Constipation Enoxaparin Sodium (Lovenox) 30 mg SC DAILY [facility] PRN Reason: Protocol Last Admin: 03/02/17 10:26 Dose: 30 mg Ergocalciferol (Drisdol 50,000 Intl Units Cap) 1 cap PO QWK [facility] Escitalopram Oxalate (Lexapro) 10 mg PO DAILY [facility] Last Admin: 03/02/17 10:25 Dose: 10 mg Ferrous Sulfate (Feosol) 324 mg PO Q12 [facility] Last Admin: 03/02/17 10:25 Dose: 324 mg Fluticasone Propionate (Flonase) 1 actuation ROSI DAILY [facility] Ceftriaxone Sodium (Rocephin 1 Gram Ivpb) 1 gm in 100 mls @ 100 mls/hr IVPB DAILY [facility] PRN Reason: Protocol Last Admin: 03/02/17 10:26 Dose: 100 mls/hr Insulin Human Lispro (Humalog High) 0 units SC ACHS [facility] PRN Reason: Protocol Last Admin: 03/02/17 12:02 Dose: 4 units Isosorbide Dinitrate (Isordil) 20 mg PO Q8 [facility] Last Admin: 03/02/17 06:23 Dose: Not Given Lactulose (Enulose) 20 gm PO DAILY [facility] Last Admin: 03/02/17 10:26 Dose: 20 gm Levothyroxine Sodium (Synthroid) 50 mcg PO 0630 [facility] Last Admin: 03/02/17 06:23 Dose: 50 mcg Mometasone Furoate (Asmanex Twisthaler 220 Mcg) 1 puff IH [facility] Last Admin: 03/02/17 11:12 Dose: Not Given Montelukast Sodium (Singulair) 10 mg PO [facility] Last Admin: 03/01/17 23:57 Dose: 10 mg Non-Formulary Medication (Saccharomyces Boulardi [Florastor]) 250 mg PO DAILY [facility] Last Admin: 03/02/17 11:29 Dose: Not Given Ondansetron HCl (Zofran Inj) 4 mg IVP Q6 PRN PRN Reason: Nausea/Vomiting Pantoprazole Sodium (Protonix Inj) 40 mg IVP DAILY [facility] Last Admin: 03/02/17 10:26 Dose: 40 mg Sevelamer HCl (Renagel) 800 mg PO WM [facility] Last Admin: 03/02/17 12:02 Dose: 800 mg Sucralfate (Carafate Tab) 1 gm PO BID [facility] Last Admin: 03/02/17 10:25 Dose: 1 gm Vitamin B Complex/Vit C/Folic Acid (Nephro-Fernando) 1 tab PO DAILY [facility] Last Admin: 03/02/17 10:26 Dose: 1 tab - Labs Labs: 03/02/17 07:50 03/02/17 07:50 PT 10.7 Seconds (9.9-11.8) 03/01/17 15:05 INR 0.99 (0.93-1.08) 03/01/17 15:05 APTT 31.9 Seconds (23.7-30.8) H 03/01/17 15:05 - Constitutional Appears: No Acute Distress - Head Exam Head Exam: ATRAUMATIC, NORMAL INSPECTION, NORMOCEPHALIC - Eye Exam Eye Exam: EOMI, Normal appearance, PERRL Pupil Exam: NORMAL ACCOMODATION, PERRL - ENT Exam ENT Exam: Mucous Membranes Moist, Normal Exam - Neck Exam Neck Exam: Full ROM, Normal Inspection. absent: Lymphadenopathy - Respiratory Exam Respiratory Exam: Clear to Ausculation Bilateral, NORMAL BREATHING PATTERN - Cardiovascular Exam Cardiovascular Exam: REGULAR RHYTHM, +S1, +S2. absent: Murmur - GI/Abdominal Exam GI & Abdominal Exam: Distended, Soft, Tenderness (diffuse), Normal Bowel Sounds - Extremities Exam Extremities Exam: Pedal Edema (+3) - Neurological Exam Neurological Exam: Alert, Awake, CN II-XII Intact, Oriented x3 - Psychiatric Exam Psychiatric exam: Normal Affect, Normal Mood - Skin Skin Exam: Dry, Erythema (b/l le), Intact, Normal Color, Warm Assessment and Plan - Assessment and Plan (Free Text) Assessment: 77 F with PMHx of ESRD on HD (MWF), COPD, DM, HTN, Hypothyroidism, presented to [facility] with complaints of lethargy, fatigue, and AMS and electrolyte abnormality 2/2 noncompliant dialysis. AMS - resolved, aaox3 now - likely 2/2 noncompliance with dialysis; uremia + tramadol use - tolerated HD yesterday, will have HD again today - Avoid narcotics since currently drowsy and altered Electrolyte abnormality - hyponatremic and hyperkalemic resolved - supplement and replete as needed Abdominal pain - recent hernia repair approx 1 week ago, incision site dressed CDI - CT ABD IV contrast, ?abscess vs post op changes, Surgery, Dr. Perez consulted, no acute intervention at this time - [place] [facility] [place]L LE erythema and swelling - improving - Dopplers negative - Rocephin for possible cellulitis COPD - continue home nebs Hypothyroidism - TSH wnl - Continue synthroid DM - Hold levemir for now will cover with sliding scale and readjust as needed - fingersticks - fu a1c HTN - Hold home meds for now - continue to monitor GI DVT ppx reviewed Seen reviewed and discussed with attending <Bekah Winchester - Last Filed: 03/02/17 15:58> Objective - Vital Signs/Intake and Output Vital Signs (last 24 hours): Temp Pulse Resp BP Pulse Ox 98.4 F 78 20 118/53 L 95 03/02/17 12:00 03/02/17 12:00 03/02/17 12:00 03/02/17 12:00 03/02/17 06:00 Intake and Output: 03/02/17 03/02/17 06:59 18:59 Intake Total 0 Output Total 0 Balance 0 - Medications Medications: Current Medications Acetaminophen (Tylenol 325mg Tab) 650 mg PO Q6H PRN PRN Reason: Pain, Mild (1-3) Albuterol Sulfate (Albuterol 0.083% Inhal Jennifer (2.5 Mg/3 Ml) Ud) 2.5 mg INH Q6H PRN PRN Reason: Wheezing Bisacodyl (Dulcolax) 10 mg RC Q8 PRN PRN Reason: Constipation Docusate Sodium (Colace) 200 mg PO DAILY PRN PRN Reason: Constipation Last Admin: 03/02/17 14:12 Dose: 200 mg Enoxaparin Sodium (Lovenox) 30 mg SC DAILY [facility] PRN Reason: Protocol Last Admin: 03/02/17 10:26 Dose: 30 mg Ergocalciferol (Drisdol 50,000 Intl Units Cap) 1 cap PO QWK [facility] Escitalopram Oxalate (Lexapro) 10 mg PO DAILY [facility] Last Admin: 03/02/17 10:25 Dose: 10 mg Ferrous Sulfate (Feosol) 324 mg PO Q12 [facility] Last Admin: 03/02/17 10:25 Dose: 324 mg Fluticasone Propionate (Flonase) 1 actuation ROSI DAILY [facility] Last Admin: 03/02/17 14:12 Dose: 1 u Ceftriaxone Sodium (Rocephin 1 Gram Ivpb) 1 gm in 100 mls @ 100 mls/hr IVPB DAILY [facility] PRN Reason: Protocol Last Admin: 03/02/17 10:26 Dose: 100 mls/hr Insulin Human Lispro (Humalog High) 0 units SC ACHS [facility] PRN Reason: Protocol Last Admin: 03/02/17 12:02 Dose: 4 units Isosorbide Dinitrate (Isordil) 20 mg PO Q8 [facility] Last Admin: 03/02/17 06:23 Dose: Not Given Lactulose (Enulose) 20 gm PO DAILY [facility] Last Admin: 03/02/17 10:26 Dose: 20 gm Levothyroxine Sodium (Synthroid) 50 mcg PO 0630 [facility] Last Admin: 03/02/17 06:23 Dose: 50 mcg Mometasone Furoate (Asmanex Twisthaler 220 Mcg) 1 puff IH [facility] Last Admin: 03/02/17 11:12 Dose: Not Given Montelukast Sodium (Singulair) 10 mg PO [facility] Last Admin: 03/01/17 23:57 Dose: 10 mg Non-Formulary Medication (Saccharomyces Boulardi [Florastor]) 250 mg PO DAILY [facility] Last Admin: 03/02/17 11:29 Dose: Not Given Ondansetron HCl (Zofran Inj) 4 mg IVP Q6 PRN PRN Reason: Nausea/Vomiting Pantoprazole Sodium (Protonix Inj) 40 mg IVP DAILY [facility] Last Admin: 03/02/17 10:26 Dose: 40 mg Sevelamer HCl (Renagel) 800 mg PO WM [facility] Last Admin: 03/02/17 12:02 Dose: 800 mg Sucralfate (Carafate Tab) 1 gm PO BID [facility] Last Admin: 03/02/17 10:25 Dose: 1 gm Vitamin B Complex/Vit C/Folic Acid (Nephro-Fernando) 1 tab PO DAILY [facility] Last Admin: 03/02/17 10:26 Dose: 1 tab - Labs Labs: 03/02/17 07:50 03/02/17 07:50 PT 10.7 Seconds (9.9-11.8) 03/01/17 15:05 INR 0.99 (0.93-1.08) 03/01/17 15:05 APTT 31.9 Seconds (23.7-30.8) H 03/01/17 15:05 Attending/Attestation - Attestation I have personally seen and examined this patient.: Yes I have fully participated in the care of the patient.: Yes I have reviewed all pertinent clinical information, including history, physical exam and plan: Yes Notes (Text): 03/02/17 15:55 attending note; Patient seen and examined With resident. Patient is a 77 year old female with past medical history of ESRD on HD, diabetes. hypothyroidism, and hypertension who presents with lethargy after missed sessions of dialysis. Was also found to have hyperkalemia with potassium of 6.2. patient got hemodialysis yesterday. Will get hemodialysis today. CT head was negative and ammonia level was normal. She also reports some abdominal discomfort. She states she had a recent hernia repair surgery about one week ago. currently tolerating diet. Denies any nausea, vomiting. CT abdomen and pelvis showed collection in the surgical site. Surgery evaluation appreciated. No procedure planned. lower extremity swelling; secondary to noncompliance with dialysis. Doppler is negative for DVT. Cellulitis; treated with Rocephin. Continue with synthroid for hypothyroidism. TSH level is normal. Patient will be transferred back to [facility] after dialysis today. Follow-up with PMD and follow-up with nephrology . 03/02/17 15:57
--- NOTE | 2017-03-02 14:07 | US ---
HISTORY: Leg pain and swelling. Evaluate for DVT PHYSICIAN(S): Quinton Lemus MD. TECHNIQUE: Duplex sonography and color-flow Doppler with graded compression were used to evaluate the deep venous systems of both lower extremities. The exam is limited by edema. The tibial veins are not well seen. FINDINGS: The visualized deep venous systems of both lower extremities are sonographically normal and compressible. Normal wave forms and augmentation are seen. There is no sonographic evidence for deep venous thrombosis in the visualized segments of both lower extremities. IMPRESSION: No sonographic evidence for deep venous thrombosis in the visualized segments of both lower extremities. Limited study.
--- NOTE | 2017-03-02 17:13 | CP.PCM.CON ---
History of Present Illness - History of Present Illness History of Present Illness: NEURO CONSULT NOTE: 03/02/17 CHIEF COMPLAINT: AMS HPI: 77 F with PMHx of ESRD on HD (MWF), COPD, DM, HTN, Hypothyroidism, presented to [facility] [place] [facility] with complaints of lethargy, fatigue, and AMS and electrolyte abnormality 2/2 noncompliant dialysis. Called to evaluate for AMS. Currently she 's following commands and moving all extremities. She had electrolyte derangements and Low blood pressure. Labs are reviewed. ROS: 14 POINT REVIEW OF SYMPTOMS IS NEGATIVE PER HPI. ALLERGIES: NONE SOCIAL HISTORY: NO ILLICIT DRUG USE, SMOKING, OR ETOH USE. FAMILY: NON CONTRIBUTORY. MEDICATIONS: REVIEWED BY NURSE'S RECONCILIATION SHEET. PAST MEDICAL HISTORY: ESRD on HD (MWF), COPD, DM, HTN, Hypothyroidism PHYSICAL EXAM: VITAL SIGNS: REVIEWED BY THE CHART GENERAL EXAM: PATIENT SEEN IN BED, IN NO ACUTE DISTRESS MORBIDLY OBESE. HEENT: PERRLA, EOMI, NECK SUPPLE, NO JVD, NO ADENOPATHY CVS: S1, S2, RRR, NO MURMURS NOTED LUNGS: CLEAR TO AUSCULTATION, NO ADVENTITIOUS SOUNDS ABDOMEN: SOFT AND NONTENDER EXTREMITIES: NO CLUBBING OR CYANOSIS. PP 2+ B/L NEURO: PT IS ALERT AND ORIENTED TO PERSON, PLACE, AND YEAR. , RECALL TO 5 MINUTES 3/3, SPEECH IS FLUENT WITHOUT ERRORS, CN II-XII INTACT, MOTOR EXAM: NORMAL TONE, NORMAL BULK OF MUSCLE, MOVES ALL EXTREMITIES EQUALLY, NO PRONATOR DRIFT SEEN. SENSORY EXAM: DECREASED LIGHT TOUCH, PIN PRICK UP TO CALVES B/L, PROPRIOCEPTION INTACT , DECREASED VIBRATION AT TOES AND KNEES DEEP TENDON REFLEXES: 2+ THROUGHOUT EXCEPT ABSENT AT KNEES AND ANKLE. COORDINATION: FINGER TO NOSE IS INTACT. GAIT: NORMAL. LABS: REVIEWED BY THE CHART. ASSESSMENT AND PLAN: 77 F with PMHx of ESRD on HD (MWF), COPD, DM, HTN, Hypothyroidism, presented to [facility] with complaints of lethargy, fatigue, and AMS and electrolyte abnormality 2/2 noncompliant dialysis. Called to evaluate for AMS. Currently she 's following commands and moving all extremities. She had electrolyte derangements and Low blood pressure.. IMPRESSION: ALTERED MENTAL STATUS IS SECONDARY TO UNDERLYING TOXIC METABOLIC ENCEPHALOPATHY FROM UNDERLYING ELECTROLYTE DERANGEMENTS. MEDICATION USE SUCH TRAMADOL AND NONCPOMPLAINCE WITH DIALYSIS 1. ASA 81 MG FOR STROKE PREVENTION 2. MONITOR ELECTROLYTES AND CORRECT ACCORDINGLY. HYDRATE. 3. FOLLOWUP WITH NEPHROLOGY IN REGARDS TO HER CKD. 4. DELIRIUM PRECAUTIONS. 5. PT ASSESSMENT THANK YOU. QUITA COBURN MD Past Patient History - Infectious Disease Hx of Infectious Diseases: None - Tetanus Immunizations Tetanus Immunization: Unknown - Past Medical History & Family History Past Medical History?: Yes - Past Social History Smoking Status: Never Smoked - CARDIAC Hx Congestive Heart Failure: Yes Hx Hypertension: Yes Hx Peripheral Edema: Yes - PULMONARY Hx Respiratory Disorders: No - NEUROLOGICAL Hx Transient Ischemic Attacks (TIA): Yes - HEENT Hx HEENT Problems: No - RENAL Hx Chronic Kidney Disease: Yes Date of Last Dialysis Treatment: 03/07/16 Hx Renal Failure: Yes (8 yrs) - ENDOCRINE/METABOLIC Hx Diabetes Mellitus Type 2: Yes (40 yrs) - HEMATOLOGICAL/ONCOLOGICAL Hx Blood Disorders: Yes Hx Anemia: Yes Hx Blood Transfusions: Yes Hx Blood Transfusion Reaction: No - INTEGUMENTARY Hx Dermatological Problems: No Hx Cellulitis: Yes - MUSCULOSKELETAL/RHEUMATOLOGICAL Hx Arthritis: Yes Hx Falls: No Hx Fractures: Yes - GASTROINTESTINAL Hx Gastrointestinal Disorders: Yes Hx Gastroesophageal Reflux: Yes Other/Comment: pt had abdominal wall hernia. - GENITOURINARY/GYNECOLOGICAL Hx Incontinence: Yes Hx Reproductive Disorders: No - PSYCHIATRIC Hx Anxiety: Yes Hx Depression: Yes Hx Substance Use: No - SURGICAL HISTORY Hx Cataract Extraction: Yes (01/13) Hx Musculoskeletal Surgery: Yes Hx Orthopedic Surgery: Yes (KNEE) Other/Comment: hx surgery post fall brain hematoma 2012,bedridden since then secondary weakness - ANESTHESIA Hx Anesthesia: Yes Hx Anesthesia Reactions: No Hx Malignant Hyperthermia: No Meds Allergies/Adverse Reactions: Allergies Allergy/AdvReac Type Severity Reaction Status Date / Time morphine Allergy Severe ANAPHYLAXIS Verified 03/01/17 22:50 peanut Allergy Severe ANAPHYLAXIS Verified 03/01/17 22:50 shellfish derived Allergy Severe ANAPHYLAXIS Verified 03/01/17 22:50 MSG Allergy Intermediate SWELLING Uncoded 03/01/17 22:50 - Medications Medications: Current Medications Acetaminophen (Tylenol 325mg Tab) 650 mg PO Q6H PRN PRN Reason: Pain, Mild (1-3) Albuterol Sulfate (Albuterol 0.083% Inhal Jennifer (2.5 Mg/3 Ml) Ud) 2.5 mg INH Q6H PRN PRN Reason: Wheezing Bisacodyl (Dulcolax) 10 mg RC Q8 PRN PRN Reason: Constipation Docusate Sodium (Colace) 200 mg PO DAILY PRN PRN Reason: Constipation Last Admin: 03/02/17 14:12 Dose: 200 mg Enoxaparin Sodium (Lovenox) 30 mg SC DAILY [facility] PRN Reason: Protocol Last Admin: 03/02/17 10:26 Dose: 30 mg Ergocalciferol (Drisdol 50,000 Intl Units Cap) 1 cap PO QWK [facility] Escitalopram Oxalate (Lexapro) 10 mg PO DAILY [facility] Last Admin: 03/02/17 10:25 Dose: 10 mg Ferrous Sulfate (Feosol) 324 mg PO Q12 [facility] Last Admin: 03/02/17 10:25 Dose: 324 mg Fluticasone Propionate (Flonase) 1 actuation ROSI DAILY [facility] Last Admin: 03/02/17 14:12 Dose: 1 u Ceftriaxone Sodium (Rocephin 1 Gram Ivpb) 1 gm in 100 mls @ 100 mls/hr IVPB DAILY [facility] PRN Reason: Protocol Last Admin: 03/02/17 10:26 Dose: 100 mls/hr Insulin Human Lispro (Humalog High) 0 units SC ACHS [facility] PRN Reason: Protocol Last Admin: 03/02/17 16:31 Dose: Not Given Isosorbide Dinitrate (Isordil) 20 mg PO Q8 [facility] Last Admin: 03/02/17 16:31 Dose: Not Given Lactulose (Enulose) 20 gm PO DAILY [facility] Last Admin: 03/02/17 10:26 Dose: 20 gm Levothyroxine Sodium (Synthroid) 50 mcg PO 0630 [facility] Last Admin: 03/02/17 06:23 Dose: 50 mcg Mometasone Furoate (Asmanex Twisthaler 220 Mcg) 1 puff IH HS [facility] Last Admin: 03/02/17 11:12 Dose: Not Given Montelukast Sodium (Singulair) 10 mg PO HS [facility] Last Admin: 03/01/17 23:57 Dose: 10 mg Non-Formulary Medication (Saccharomyces Boulardi [Florastor]) 250 mg PO DAILY [facility] Last Admin: 03/02/17 11:29 Dose: Not Given Ondansetron HCl (Zofran Inj) 4 mg IVP Q6 PRN PRN Reason: Nausea/Vomiting Pantoprazole Sodium (Protonix Inj) 40 mg IVP DAILY [facility] Last Admin: 03/02/17 10:26 Dose: 40 mg Sevelamer HCl (Renagel) 800 mg PO WM [facility] Last Admin: 03/02/17 16:32 Dose: Not Given Sucralfate (Carafate Tab) 1 gm PO BID [facility] Last Admin: 03/02/17 10:25 Dose: 1 gm Vitamin B Complex/Vit C/Folic Acid (Nephro-Fernando) 1 tab PO DAILY [facility] Last Admin: 03/02/17 10:26 Dose: 1 tab Results - Vital Signs Recent Vital Signs: Last Vital Signs Temp 98.4 F 03/02/17 12:00 Pulse 78 03/02/17 12:00 Resp 20 03/02/17 12:00 BP 118/53 L 03/02/17 12:00 Pulse Ox 95 03/02/17 06:00 - Labs Result Diagrams: 03/02/17 07:50 03/02/17 07:50 Labs: Laboratory Results - last 24 hr 03/02/17 03/02/17 07:50 07:50 WBC 7.0 D RBC 2.91 L Hgb 8.9 L Hct 27.4 L MCV 94.2 MCH 30.6 MCHC 32.5 RDW 13.4 Plt Count 136 MPV 8.6 Gran % 78.1 H Lymph % (Auto) 10.8 L Galax % (Auto) 8.1 H Eos % (Auto) 2.7 Baso % (Auto) 0.3 Gran # 5.43 Lymph # 0.8 L Galax # 0.6 Eos # 0.2 Baso # 0.02 Sodium 136 Potassium 4.3 Chloride 101 Carbon Dioxide 25 Anion Gap 14 BUN 43 H Creatinine 5.2 H Est GFR ( Amer) 10 Est GFR (Non-Af Amer) 8 Random Glucose 161 H Calcium 8.4 Total Bilirubin 0.4 AST 15 ALT 19 Alkaline Phosphatase 114 Total Protein 6.3 Albumin 3.2 Globulin 3.2 Albumin/Globulin Ratio 1.0 L
--- NOTE | 2017-03-03 09:49 | PCM.PYCHPN ---
Psychiatric Progress Note - Psychiatric Progress Note Patient seen today, length of contact: consult note o 03/02 Patient Chief Complaint: non compliance w dialysis. written note,pt appeared improved and compliant when seen
[2017-03-08] MEDS ORDERED: Ergocalciferol 50,000 Intl Units Cap PO SCH (10:00)
== END 2017-03-02 20:14 | DRG 602 ==
LOC: ED 14:29 → ERH 16:11 → OBSVTOIN 20:10 → 2RNO 22:30
PROVIDERS: ADMIT Internal Medicine; ATTEND Internal Medicine
PROC: 5A1D60Z (ICD-10-PCS; principal; 2017-03-01)
DX: L02.211 Cutaneous abscess of abdominal wall (principal); N18.6 End stage renal disease; G92 Toxic encephalopathy; I13.2 Hypertensive heart and chronic kidney disease with heart failure and with stage 5 chronic kidney disease, or end stage renal disease; E87.1 Hypo-osmolality and hyponatremia; Z68.42 Body mass index [BMI] 45.0-49.9, adult; L03.119 Cellulitis of unspecified part of limb; E87.5 Hyperkalemia; E11.22 Type 2 diabetes mellitus with diabetic chronic kidney disease; J44.9 Chronic obstructive pulmonary disease, unspecified; E03.9 Hypothyroidism, unspecified; K21.9 Gastro-esophageal reflux disease without esophagitis; E66.01 Morbid (severe) obesity due to excess calories; I50.9 Heart failure, unspecified; Z91.15 Patient's noncompliance with renal dialysis; Z99.2 Dependence on renal dialysis

== ENCOUNTER 2017-04-29 21:57 | Emergency (ER) | payer MEDICARE, MEDICAID ==
[2017-04-29 21:57] VITALS: BMI 59.5
--- NOTE | 2017-04-29 22:00 | ED PDOC ---
Arrival/HPI - General Historian: Patient, EMS <Tomás Curtis - Last Filed: 04/30/17 01:42> <Dieudonne Lopez - Last Filed: 04/30/17 02:48> - General Time Seen by Provider: 04/29/17 21:58 - History of Present Illness Narrative History of Present Illness (Text): 04/29/17 22:00 77 y/o female, pmh including copd/chf/esrd (monday/monday//monday)/dm , allergic to morphine, send in from rehab home, c/o urinary tract symptoms today. Pt. stated that she has history of urinary tract infection, feels like she having one now which she feels burning urinary sensation started today, no chest pain or shortness of breath, no fever or chills, no fatigue, no change in appertize or energy level, no other medical or psychological complaints. (Tomás Curtis) Past Medical History - Provider Review Nursing Documentation Reviewed: Yes - Infectious Disease Hx of Infectious Diseases: None - Tetanus Immunization Tetanus Immunization: Unknown - Cardiac Hx Congestive Heart Failure: Yes Hx Hypertension: Yes Hx Peripheral Edema: Yes - Pulmonary Hx Respiratory Disorders: No - Neurological Hx Transient Ischemic Attacks (TIA): Yes - HEENT Hx HEENT Disorder: No - Renal Hx Renal Disorder: Yes Date of Last Dialysis Treatment: 03/07/16 Hx Renal Failure: Yes (8 yrs) - Endocrine/Metabolic Hx Diabetes Mellitus Type 2: Yes (40 yrs) - Hematological/Oncological Hx Blood Disorders: Yes Hx Anemia: Yes Hx Blood Transfusions: Yes Hx Blood Transfusion Reaction: No - Integumentary Hx Dermatological Disorder: No Hx Cellulitis: Yes - Musculoskeletal/Rheumatological Hx Arthritis: Yes Hx Falls: No Hx Fractures: Yes - Gastrointestinal Hx Gastrointestinal Disorders: Yes Hx Gastroesophageal Reflux: Yes Other/Comment: pt had abdominal wall hernia. - Genitourinary/Gynecological Hx Incontinence: Yes Hx Reproductive Disorders: No - Psychiatric Hx Anxiety: Yes Hx Depression: Yes Hx Substance Use: No - Past Surgical History Past Surgical History: Unable to Obtain - Surgical History Hx Cataract Extraction: Yes (01/13) Hx Musculoskeletal Surgery: Yes Hx Orthopedic Surgery: Yes (KNEE) Other/Comment: hx surgery post fall brain hematoma 2012,bedridden since then secondary weakness - Anesthesia Hx Anesthesia: Yes Hx Anesthesia Reactions: No Hx Malignant Hyperthermia: No - Suicidal Assessment Feels Threatened In Home Enviroment: No <Tomás Curtis - Last Filed: 04/30/17 01:42> Family/Social History - Physician Review Nursing Documentation Reviewed: Yes Family/Social History: Unknown Family HX Smoking Status: Never Smoked Hx Alcohol Use: No Hx Substance Use: No Hx Substance Use Treatment: No <Tomás Curtis - Last Filed: 04/30/17 01:42> Allergies/Home Meds <Tomás Curtis - Last Filed: 04/30/17 01:42> <Dieudonne Lopez - Last Filed: 04/30/17 02:48> Allergies/Adverse Reactions: Allergies morphine Allergy (Severe, Verified 03/01/17 22:50) ANAPHYLAXIS peanut Allergy (Severe, Verified 03/01/17 22:50) ANAPHYLAXIS shellfish derived Allergy (Severe, Verified 03/01/17 22:50) ANAPHYLAXIS acetaminophen [From Percocet] Allergy (Verified 04/29/17 22:12) ANAPHYLAXIS oxycodone [From Percocet] Allergy (Verified 04/29/17 22:12) ANAPHYLAXIS MSG Allergy (Intermediate, Uncoded 03/01/17 22:50) SWELLING Home Medications: Home Meds Medication Instructions Recorded Confirmed Acetaminophen 325 mg PO Q6 PRN 01/28/16 04/30/17 Amino Acids/Protein Hydrolys 30 ml PO TID 01/28/16 04/30/17 [Pro-Stat Profile Liquid] Fluticasone Propionate [Flonase 2 puff NS Q12 03/01/17 04/30/17 Allergy Relief] ALPRAZolam [Xanax] 0.25 mg PO Q8 PRN 04/29/17 04/30/17 Atorvastatin [Lipitor] 20 mg PO DAILY 04/29/17 04/30/17 Budesonide [Pulmicort Flexhaler] 2 puff INH DAILY 04/29/17 04/30/17 Cinacalcet [Sensipar] 30 mg PO DAILY 04/29/17 04/30/17 Folic Acid [Folic Acid] 1 mg PO DAILY 04/29/17 04/30/17 Gabapentin [Neurontin] 200 mg PO TID 04/29/17 04/30/17 Insulin Detemir [Levemir] 40 unit SC QPM 04/29/17 04/30/17 Ondansetron HCl [Zofran] 4 mg PO Q6 PRN 04/29/17 04/30/17 Pantoprazole [Protonix] 40 mg PO DAILY 04/29/17 04/30/17 Review of Systems - Review of Systems Constitutional: absent: Fatigue, Fevers Eyes: absent: Vision Changes ENT: absent: Hearing Changes Respiratory: absent: SOB, Cough Cardiovascular: absent: Chest Pain Gastrointestinal: absent: Abdominal Pain, Diarrhea, Nausea, Vomiting Genitourinary Female: Dysuria. absent: Frequency, Hematuria, Urine Output Changes, Vaginal Bleeding, Vaginal Discharge Musculoskeletal: absent: Arthralgias, Back Pain Skin: absent: Rash, Pruritis, Skin Lesions, Abscess Neurological: absent: Headache, Dizziness <Tomás Curtis - Last Filed: 04/30/17 01:42> Physical Exam Temperature: Afebrile Blood Pressure: Normal Pulse: Regular Respiratory Rate: Normal Appearance: Positive for: Well-Appearing, Non-Toxic, Comfortable Pain Distress: None Mental Status: Positive for: Alert and Oriented X 3 - Systems Exam Head: Present: Atraumatic, Normocephalic Pupils: Present: PERRL Extroacular Muscles: Present: EOMI Conjunctiva: Present: Normal Mouth: Present: Moist Mucous Membranes Neck: Present: Normal Range of Motion Respiratory/Chest: Present: Clear to Auscultation, Good Air Exchange. No: Respiratory Distress, Accessory Muscle Use Cardiovascular: Present: Regular Rate and Rhythm, Normal S1, S2. No: Murmurs Abdomen: Present: Normal Bowel Sounds. No: Tenderness, Distention, Peritoneal Signs, Rebound, Guarding Back: Present: Normal Inspection. No: CVA Tenderness Upper Extremity: Present: Normal Inspection. No: Cyanosis, Edema Lower Extremity: Present: Normal Inspection. No: Edema Neurological: Present: GCS=15, Speech Normal, Motor Func Grossly Intact, Memory Normal Skin: Present: Warm, Dry, Normal Color. No: Rashes Psychiatric: Present: Alert, Oriented x 3, Normal Insight, Normal Concentration <Tomás Curtis - Last Filed: 04/30/17 01:42> Medical Decision Making <Tomás Curtis - Last Filed: 04/30/17 01:42> <Dieudonne Lopez - Last Filed: 04/30/17 02:48> ED Course and Treatment: 04/29/17 22:12 -labs/ua -observe and reassess 04/30/17 01:43 -Labs are non-significant compared to previous labs -Pending UA -Case discussed and signout to the ER attending Dr. Lopez to follow up and dispo the patient. (Tomás Curtis) - Lab Interpretations Lab Results: 04/29/17 23:20 04/29/17 23:20 Lab Results 04/30/17 01:44: Urine Color Yellow, Urine Appearance Turbid, Urine pH 6.5, Ur Specific Walker 1.020, Urine Protein >=300 H, Urine Glucose (UA) Negative, Urine Ketones Negative, Urine Blood Large H, Urine Nitrate Positive H, Urine Bilirubin Small H, Urine Urobilinogen 0.2, Ur Leukocyte Esterase Large H, Urine RBC Tntc, Urine WBC Tntc, Ur Epithelial Cells 0 - 2, Urine Bacteria Many 04/29/17 23:20: Sodium 137, Potassium 3.7, Chloride 99, Carbon Dioxide 28, Anion Gap 14, BUN 21, Creatinine 3.6 H, Est GFR ( Amer) 15, Est GFR (Non- Af Amer) 12, Random Glucose 206 H, Calcium 8.4, Total Bilirubin 0.5, AST 33, ALT 32, Alkaline Phosphatase 146 H, Total Protein 6.6, Albumin 3.2, Globulin 3.3 , Albumin/Globulin Ratio 1.0 L 04/29/17 23:20: WBC 7.7, RBC 2.91 L, Hgb 9.2 L, Hct 28.5 L, MCV 97.9, MCH 31.6, MCHC 32.3, RDW 16.6 H, Plt Count 140, MPV 9.2, Gran % 76.7 H, Lymph % (Auto) 15.1 L, Graves % (Auto) 5.7, Eos % (Auto) 2.1, Baso % (Auto) 0.4, Gran # 5.87, Lymph # 1.2, Graves # 0.4, Eos # 0.2, Baso # 0.03 - Medication Orders Current Medication Orders: Discontinued Medications Ceftriaxone Sodium (Rocephin 1 Gram Ivpb) 1 gm in 100 mls @ 200 mls/hr IV ONCE STA PRN Reason: Protocol Stop: 04/30/17 02:34 - PA / TELEVISION DIRECTOR / Resident Statement / has reviewed & agrees with the documentation as recorded. <Tomás Curtis - Last Filed: 04/30/17 01:42> - PA / TELEVISION DIRECTOR / Resident Statement / has reviewed & agrees with the documentation as recorded. / has examined the patient and agrees with the treatment plan. <Dieudonne Lopez - Last Filed: 04/30/17 02:48> Disposition/Present on Arrival - Present on Arrival Any Indicators Present on Arrival: No History of DVT/PE: No History of Uncontrolled Diabetes: No Urinary Catheter: No History of Decub. Ulcer: No History Surgical Site Infection Following: None - Disposition Have Diagnosis and Disposition been Completed?: Yes Disposition Time: 22:13 <Tomás Curtis - Last Filed: 04/30/17 01:42> - Present on Arrival Any Indicators Present on Arrival: No History of DVT/PE: No - Disposition Have Diagnosis and Disposition been Completed?: Yes Patient Plan: Discharge <JessicaDieudonne - Last Filed: 04/30/17 02:48> - Disposition Diagnosis: UTI (urinary tract infection) Disposition: TRANSF TO [facility] Patient Problems: Current Active Problems Problem Status Onset UTI (urinary tract infection) Acute Condition: GOOD Discharge Instructions (ExitCare): Urinary Tract Infection in Women (ED) Additional Instructions: Medication as prescribed/follow up with your doctor this week Prescriptions: Cephalexin [cephalexin] 500 mg PO BID #20 cap Referrals: PCP,NO [Primary Care Provider] - Follow up with primary
[2017-04-29 23:32] LABS: BASO # 0.03 K/mm3 (0.0-2.0); BASO % 0.4 % (0.0-3.0); EOS # 0.2 (0.0-0.7); EOS % 2.1 % (1.5-5.0); GRAN # 5.87 (1.4-6.5); GRAN % 76.7 % (50.0-68.0); HEMATOCRIT 28.5 % (36.0-48.0); LYMPH # 1.2 (1.2-3.4); LYMPH % 15.1 % (22.0-35.0); MEAN CELL VOLUME 97.9 fl (80.0-105.0); MEAN CORPUSCULAR HEMOGLOBIN 31.6 pg (25.0-35.0); MEAN CORPUSCULAR HGB CONC 32.3 g/dl (31.0-37.0); MEAN PLATELET VOLUME 9.2 fl (7.0-11.0); MONO # 0.4 (0.1-0.6); MONO % 5.7 % (1.0-6.0); RED CELL DISTRIBUTION WIDTH 16.6 % (11.5-14.5); WHITE BLOOD COUNT 7.7 10^3/ul (4.5-11.0)
[2017-04-29 23:44] LABS: BILIRUBIN,TOTAL 0.5 mg/dL (0.2-1.3); CALCIUM 8.4 mg/dL (8.4-10.5); POTASSIUM 3.7 mmol/L (3.6-5.0); TOTAL PROTEIN 6.6 g/dL (5.8-8.3)
[2017-04-30 01:53] LABS: PH,URINE 6.5 (4.7-8.0); URINE BILIRUBIN SMALL (NEGATIVE); URINE BLOOD LARGE (NEGATIVE); URINE GLUCOSE (UA) NEGATIVE (NEGATIVE); URINE KETONE NEGATIVE (NEGATIVE); URINE LEUKOCYTE ESTERASE LARGE Leu/uL (NEGATIVE); URINE PROTEIN >=300 mg/dL (<30 mg/dL); URINE UROBILINOGEN 0.2 E.U./dL (<1 E.U./dL)
[2017-04-30 01:55] LABS: URINE APPEARANCE TURBID (CLEAR); URINE COLOR YELLOW (YELLOW)
[2017-04-30 02:00] LABS: URINE EPITHELIAL CELLS 0 - 2 /hpf (0-5); URINE RBC TNTC /hpf (0-2); URINE WBC TNTC /hpf (0-6)
[2017-04-30 02:01] LABS: URINE BACTERIA MANY (NEG)
[2017-04-30] MEDS ORDERED: cefTRIAXone 1 gm 1 GM/100 ML BAG IV STA (02:05)
[2017-04-30 08:22] VITALS: BP 118/59; PULSE 85; RESP 16; TEMP 98.9; O2SAT 94
== END 2017-04-30 08:36 ==
LOC: ED 21:57
DX: N39.0 Urinary tract infection, site not specified (principal); I12.0 Hypertensive chronic kidney disease with stage 5 chronic kidney disease or end stage renal disease; E11.22 Type 2 diabetes mellitus with diabetic chronic kidney disease; N18.6 End stage renal disease; Z99.2 Dependence on renal dialysis
CPT/HCPCS: 80053; 81001; 85025; 87086; 96365; 99283; J0696

== ENCOUNTER 2017-09-29 18:53 | Emergency (ER) | payer MEDICARE, MEDICAID ==
[2017-09-29 19:07] VITALS: TEMP 97.9
[2017-09-29 19:16] VITALS: BMI 42.7
--- NOTE | 2017-09-29 19:40 | ED PDOC ---
Arrival/HPI - General Chief Complaint: Cough, Cold, Congestion Time Seen by Provider: 09/29/17 19:06 Historian: Patient - History of Present Illness Narrative History of Present Illness (Text): 09/29/17 19:34 A 77 year old female, whose past medical history includes COPD, CHF, ESRD(M/W/Th /F/Sat), and diabetes, is brought in by ambulance from dialysis appointment and presents to the emergency department complaining of cough and congestion. Patient has no other complaints. No PMD Past Medical History - Provider Review Nursing Documentation Reviewed: Yes - Infectious Disease Hx of Infectious Diseases: None - Tetanus Immunization Tetanus Immunization: Unknown - Cardiac Hx Cardiac Disorders: Yes Hx Congestive Heart Failure: Yes Hx Hypertension: Yes Hx Peripheral Edema: Yes - Pulmonary Hx Respiratory Disorders: Yes Hx Asthma: Yes - Neurological Hx Neurological Disorder: Yes Hx Transient Ischemic Attacks (TIA): Yes - HEENT Hx HEENT Disorder: No - Renal Hx Renal Disorder: Yes Hx Dialysis: Yes ([facility]) Date of Last Dialysis Treatment: 09/29/17 Hx Renal Failure: Yes (8 yrs) - Endocrine/Metabolic Hx Endocrine Disorders: Yes Hx Diabetes Mellitus Type 2: Yes (40 yrs) - Hematological/Oncological Hx Blood Disorders: Yes Hx Anemia: Yes Hx Blood Transfusions: Yes Hx Blood Transfusion Reaction: No - Integumentary Hx Dermatological Disorder: Yes Hx Cellulitis: Yes - Musculoskeletal/Rheumatological Hx Musculoskeletal Disorders: Yes Hx Arthritis: Yes Hx Falls: Yes Hx Fractures: Yes - Gastrointestinal Hx Gastrointestinal Disorders: Yes Hx Gastroesophageal Reflux: Yes Other/Comment: pt had abdominal wall hernia. - Genitourinary/Gynecological Hx Genitourinary Disorders: Yes Hx Incontinence: Yes Hx Reproductive Disorders: No - Psychiatric Hx Anxiety: Yes Hx Depression: Yes Hx Substance Use: No - Past Surgical History Past Surgical History: Unable to Obtain - Surgical History Hx Cataract Extraction: Yes (01/13) Hx Musculoskeletal Surgery: Yes Hx Orthopedic Surgery: Yes (KNEE) Other/Comment: hx surgery post fall brain hematoma 2012,bedridden since then secondary weakness - Anesthesia Hx Anesthesia: Yes Hx Anesthesia Reactions: No Hx Malignant Hyperthermia: No - Suicidal Assessment Feels Threatened In Home Enviroment: No Family/Social History - Physician Review Nursing Documentation Reviewed: Yes Family/Social History: No Known Family HX Smoking Status: Never Smoked Hx Alcohol Use: No Hx Substance Use: No Hx Substance Use Treatment: No Allergies/Home Meds Allergies/Adverse Reactions: Allergies morphine Allergy (Severe, Verified 09/29/17 19:12) ANAPHYLAXIS peanut Allergy (Severe, Verified 09/29/17 19:12) ANAPHYLAXIS shellfish derived Allergy (Severe, Verified 09/29/17 19:12) ANAPHYLAXIS acetaminophen [From Percocet] Allergy (Verified 09/29/17 19:12) ANAPHYLAXIS oxycodone [From Percocet] Allergy (Verified 09/29/17 19:12) ANAPHYLAXIS MSG Allergy (Intermediate, Uncoded 09/29/17 19:12) SWELLING Home Medications: Home Meds Medication Instructions Recorded Confirmed Acetaminophen 325 mg PO Q6 PRN 01/28/16 09/29/17 Amino Acids/Protein Hydrolys 30 ml PO TID 01/28/16 09/29/17 [Pro-Stat Profile Liquid] Fluticasone Propionate [Flonase 2 puff NS Q12 03/01/17 09/29/17 Allergy Relief] ALPRAZolam [Xanax] 0.25 mg PO Q8 PRN 04/29/17 09/29/17 Atorvastatin [Lipitor] 20 mg PO DAILY 04/29/17 09/29/17 Budesonide [Pulmicort Flexhaler] 2 puff INH DAILY 04/29/17 09/29/17 Cinacalcet [Sensipar] 30 mg PO DAILY 04/29/17 09/29/17 Folic Acid [Folic Acid] 1 mg PO DAILY 04/29/17 09/29/17 Gabapentin [Neurontin] 200 mg PO TID 04/29/17 09/29/17 Insulin Detemir [Levemir] 40 unit SC QPM 04/29/17 09/29/17 Ondansetron HCl [Zofran] 4 mg PO Q6 PRN 04/29/17 09/29/17 Pantoprazole [Protonix] 40 mg PO DAILY 04/29/17 09/29/17 Budesonide [Pulmicort Flexhaler] 2 puff NEB DAILY 09/29/17 09/29/17 Calcitriol 1 cap PO DAILY 09/29/17 09/29/17 Heparin [Heparin] 5,000 unit SC Q12 09/29/17 09/29/17 Review of Systems - Physician Review All systems were reviewed & negative as marked: Yes - Review of Systems ENT: Sinus Congestion Respiratory: Cough Physical Exam Vital Signs Reviewed: Yes Vital Signs Temp Pulse Resp BP Pulse Ox 09/29/17 22:30 109 H 16 130/51 L 96 09/29/17 19:07 97.9 F 114 H 18 126/54 L 97 Temperature: Afebrile Blood Pressure: Normal Pulse: Regular Respiratory Rate: Normal Appearance: Positive for: Well-Appearing Pain Distress: None Mental Status: Positive for: Alert and Oriented X 3 - Systems Exam Head: Present: Atraumatic, Normocephalic Pupils: Present: PERRL Extroacular Muscles: Present: EOMI Conjunctiva: Present: Normal Mouth: Present: Moist Mucous Membranes Neck: Present: Normal Range of Motion Respiratory/Chest: Present: Clear to Auscultation, Good Air Exchange. No: Respiratory Distress, Accessory Muscle Use Cardiovascular: Present: Regular Rate and Rhythm, Normal S1, S2. No: Murmurs Abdomen: Present: Normal Bowel Sounds, Mass/Organomegaly (hard mass either a hematoma or lymphoma). No: Tenderness, Distention, Peritoneal Signs Back: Present: Normal Inspection Upper Extremity: Present: Normal Inspection. No: Cyanosis, Edema Lower Extremity: Present: Normal Inspection. No: Edema Neurological: Present: GCS=15, CN II-XII Intact, Speech Normal Skin: Present: Warm, Dry, Normal Color. No: Rashes Psychiatric: Present: Alert, Oriented x 3, Normal Insight, Normal Concentration Medical Decision Making ED Course and Treatment: 09/29/17 19:37 Impression: 77 year old female with cough and congestion. Plan: -- Abdominal Ultrasound -- Rapid Flu Test -- Reassess and disposition Prior Visits: Notes and results from previous visits were reviewed. Patient was last seen in the emergency department on 04/29/2017 for urinary tract symptoms. Patient was transferred to SNF. Progress Notes: 09/29/2017 21:17 Abdominal Ultrasound IMPRESSION: 1. Edema within soft tissues about umbilical region. 2. Echogenic kidneys suggesting medical renal disease. 3. Splenomegaly. Dictator: Олег Lopez MD EXAM: CT Abdomen and Pelvis Without Intravenous Contrast Dictated and Authenticated by: Gaby Gaviria MD 09/29/2017 11:49 PM IMPRESSION: Large round hyperdense structure in between the abdominis rectus muscles of the pelvis with stranding and soft tissue density in the surrounding fat. The heterogeneous hyperdense composition would be more typical of a hematoma although abscess would still be possible as would complex proteinaceous structure or neoplastic origin. Stranding in the surrounding fat could represent either infectious/inflammatory process versus contusion versus edema.Clinical correlation recommended. - Lab Interpretations Lab Results: Lab Results 09/29/17 19:50: Influenza Typ A,B (EIA) Negative for flu a/b - RAD Interpretation Radiology Orders: 09/29/17 19:31 ABDOMEN COMPLETE [US] Stat 09/29/17 21:20 ABD & PELVIS W/O PO OR IV CONT [CT] Stat - Medication Orders Current Medication Orders: Discontinued Medications Albuterol/Ipratropium (Duoneb 3 Mg/0.5 Mg (3 Ml) Ud) 3 ml IH STAT STA Stop: 09/29/17 23:36 Last Admin: 09/29/17 23:36 Dose: 3 ml Diphenhydramine HCl (Benadryl) 50 mg IM STAT STA Stop: 09/29/17 22:20 Last Admin: 09/29/17 22:30 Dose: 50 mg IM Administration Charges Document 09/29/17 22:30 CNR (Rec: 09/29/17 22:30 CNR [id number]) Injection Site MAR Injection Site Right Deltoid Charges for Administration # of IM Administrations 1 - PA / [employer] / Resident Statement MD/DO has reviewed & agrees with the documentation as recorded. - Scribe Statement The provider has reviewed the documentation as recorded by the Chandleribjania Lozano Provider Scribe Attestation: All medical record entries made by the Scribe were at my direction and personally dictated by me. I have reviewed the chart and agree that the record accurately reflects my personal performance of the history, physical exam, medical decision making, and the department course for this patient. I have also personally directed, reviewed, and agree with the discharge instructions and disposition. Disposition/Present on Arrival - Present on Arrival Any Indicators Present on Arrival: No History of DVT/PE: No History of Uncontrolled Diabetes: No Urinary Catheter: No History of Decub. Ulcer: No History Surgical Site Infection Following: None - Disposition Diagnosis: Hematoma Disposition: HOME/ ROUTINE Disposition Time: 23:56 Patient Plan: Discharge Patient Problems: Current Active Problems Problem Status Onset Hematoma Acute Discharge Instructions (ExitCare): Hematoma (ED) Additional Instructions: Mrs Nayak- CT says that this is most likely a hematoma. [Bad Bruise] The doctor who did the biopsy has your answer for you. Please follow up with them on MONDAY. In the meanwhile there is no change in your medicines or routines. Return to us if worse or any problems. Jl- Dr. Raj Nicholas Referrals: [facility], [Primary Care Provider] - Follow up with primary Forms: [employer]im[employer] (Kiswahili)
--- NOTE | 2017-09-29 21:18 | US ---
EXAM: US Abdomen Complete CLINICAL HISTORY: 77 years old, female; Pain; Abdominal pain; Additional info: Abdominal wall mass / hematoma? TECHNIQUE: Real-time ultrasound of the abdomen (complete) with image documentation. COMPARISON: CT - ABD PELVIS W/O PO OR IV CONT 2017-03-01 21:25 FINDINGS: Limitations: Body habitus. Liver: Fatty infiltration. No mass. No intrahepatic ductal dilatation. Gallbladder: No gallstones. No definite wall thickening. No pericholecystic fluid. No sonographic Soni's sign. Common bile duct: No dilatation. No stones. Pancreas: Obscured by overlying bowel gas. Kidneys: Increased in echogenicity. 2.2 cm left renal cyst. No hydronephrosis. Spleen: Enlarged, 19.9 cm. Aorta: Obscured by overlying bowel gas. Inferior vena cava: Obscured by overlying bowel gas. Soft tissues: Edema within soft tissues about umbilical region. Free fluid: No significant free fluid. IMPRESSION: 1. Edema within soft tissues about umbilical region. 2. Echogenic kidneys suggesting medical renal disease. 3. Splenomegaly. 4. Incidental/non-acute findings are described above.
[2017-09-29] MEDS ORDERED: DiphenhydrAMINE 50 mg/ml Inj IM STA (22:19)
[2017-09-29] MEDS ORDERED: Albuterol-Ipratrop 3 mg / 0.5 (3 ml) UD ONE (23:15)
[2017-09-29] MEDS ORDERED: Albuterol-Ipratrop 3 mg / 0.5 (3 ml) UD IH STA (23:35)
--- NOTE | 2017-09-29 23:50 | CT ---
EXAM: CT Abdomen and Pelvis Without Intravenous Contrast EXAM DATE/TIME: 09/29/2017 9:20 PM CLINICAL HISTORY: 77 years old, female; Condition or disease; Abscess; Abscess location: Hematom anterior abd wall; Additional info: ? Hematoma in abdominal wall ovr umbilicus TECHNIQUE: Axial computed tomography images of the abdomen and pelvis without intravenous contrast. All CT scans at this facility use one or more dose reduction techniques, viz.: automated exposure control; ma/kV adjustment per patient size (including targeted exams where dose is matched to indication; i.e. head); or iterative reconstruction technique. Coronal and sagittal reformatted images were created and reviewed. COMPARISON: CT - ABD PELVIS W/O PO OR IV CONT 2017-03-01 21:25 FINDINGS: There is artifact due to large body habitus. Elevation of the right hemidiaphragm with a small amount of adjacent atelectasis in the right lower lung. The liver is incompletely imaged however appears grossly normal. Sludge or calculi within the gallbladder. The spleen and adrenals are grossly normal. Pancreatic atrophy. Atrophic kidneys with pelvic lipomatosis and left renal cyst similar to prior. The bowel appears grossly normal. There is a large round slightly heterogeneous hyperdense structure in between the abdominis rectus muscles of the pelvis measuring 8 cm in diameter. On the prior study, there is a much smaller collection in this region and there is air within the collection on the prior. The structure extends anteriorly to nearly abut the skin surface and extends posteriorly through the fascia. There is stranding and soft tissue density in the surrounding fat slightly increased from prior. Multiple small nodular soft tissue densities are noted in the subcutaneous fat to the left of the collection similar to prior. Stranding and soft tissue infiltration of the lateral left thigh somewhat similar to prior although incompletely imaged on prior. Again seen is evidence of vertebroplasty at L2. IMPRESSION: Large round hyperdense structure in between the abdominis rectus muscles of the pelvis with stranding and soft tissue density in the surrounding fat. The heterogeneous hyperdense composition would be more typical of a hematoma although abscess would still be possible as would complex proteinaceous structure or neoplastic origin. Stranding in the surrounding fat could represent either infectious/inflammatory process versus contusion versus edema.Clinical correlation recommended.
[2017-09-30 02:47] VITALS: RESP 19
[2017-09-30 04:20] VITALS: BP 121/50; PULSE 103; O2SAT 97
--- NOTE | 2017-09-30 09:06 | RAD ---
HISTORY: r/o infiltrate COMPARISON: 03/01/2017. FINDINGS: LUNGS: The lungs are clear. No focal consolidation. PLEURA: No significant pleural effusion identified, no pneumothorax apparent. CARDIOVASCULAR: Normal. OSSEOUS STRUCTURES: No significant abnormalities. VISUALIZED UPPER ABDOMEN: Normal. OTHER FINDINGS: None. IMPRESSION: No active pulmonary disease.
== END 2017-09-30 05:48 ==
LOC: ED 18:53
DX: S30.1XXA Contusion of abdominal wall, initial encounter (principal); X58.XXXA Exposure to other specified factors, initial encounter; Y92.9 Unspecified place or not applicable; I12.0 Hypertensive chronic kidney disease with stage 5 chronic kidney disease or end stage renal disease; E11.22 Type 2 diabetes mellitus with diabetic chronic kidney disease; N18.6 End stage renal disease; Z99.2 Dependence on renal dialysis
CPT/HCPCS: 71045; 74176; 76700; 87804; 96372; 99285; J1200; J1885